=== PATIENT | male | born 1960 | race Caucasian/White ===

== ENCOUNTER 2016-10-13 12:00 | Inpatient (IN) | payer MEDICARE, OTHER ==
[~2016-10-13] VITALS: Ht 177.8 cm; Wt 88.3 kg
[~2016-10-13 12:00] MED LIST: ATOR40TA49 PO; BUPR100CR PO; CHLO.12%30 SSP; FENO134C PO; GLIP10 PO; GLUCTAB PO; IBUP-232 PO; LANS30 PO; LITH150C7 PO; METO50 PO; PENI500T PO; PLAV75TA PO; TAB-TAB PO
[2016-10-13 13:20] LABS: BASOPHIL % 0.3 % (0.0-2.0); EOSINOPHIL # 0.1 TH/MM3 (0-0.4); EOSINOPHIL % 1.3 % (0.0-4.0); HEMO FLAGS DIFF FINAL; LYMPHOCYTE # 1.3 TH/MM3 (1.0-4.8); MEAN CELL VOLUME 84.7 FL (80.0-100.0); MEAN CORPUSCULAR HEMOGLOBIN 27.6 PG (27.0-34.0); MEAN CORPUSCULAR HGB CONC 32.6 % (32.0-36.0); NEUT % 81.4 % (16.0-70.0); PLATELET COUNT 262 TH/MM3 (150-450); RED BLOOD COUNT 4.72 MIL/MM3 (4.50-5.90); RED CELL DISTRIBUTION WIDTH 14.5 % (11.6-17.2); WHITE BLOOD COUNT 9.9 TH/MM3 (4.0-11.0)
[2016-10-13 13:34] LABS: ANION GAP 9 MEQ/L (5-15); AST (GOT) 67 U/L (15-37); BICARBONATE 22.5 MEQ/L (21.0-32.0); BLOOD UREA NITROGEN 17 MG/DL (7-18); CHLORIDE 106 MEQ/L (98-107); GLOMERULAR FILTRATION RATE 53 ML/MIN (>89); POTASSIUM 3.9 MEQ/L (3.5-5.1); SODIUM (NA) 137 MEQ/L (136-145)
[2016-10-13 13:39] LABS: ALKALINE PHOSPHATASE 59 U/L (45-117); ALT (GPT) 69 U/L (12-78); TOTAL BILIRUBIN ADULT 0.5 MG/DL (0.2-1.0)
--- NOTE | 2016-10-13 14:10 | PD ---
HPI Chief Complaint: Psychiatric Symptoms Time Seen by Provider: 13:45 Travel History International Travel<30 days: No Contact w/Intl Traveler<30days: No Traveled to known affect area: No History of Present Illness HPI Patient is a 56-year-old male presenting to emergency voluntarily, he was noticed at his apartment complex to be going through the trash. The police were called and brought patient to the emergency department for evaluation. Patient admits to not taking his medications as directed/consistently. He states it is too busy at times to eat, he has not eaten yet today. He reports living alone and to hearing voices. Patient states that people talked him telepathically, this confuses him. He states the voices influence what he does , telling him what to do. Patient then reported that his medications are contaminated and is requesting new ones. He has no physical complaints at this time. PFSH Past Medical History Arthritis: No Asthma: No Bipolar Disorder: Yes Anxiety: No Depression: Yes Heart Rhythm Problems: No Cardiovascular Problems: Yes High Cholesterol: No Chest Pain: Yes Congestive Heart Failure: No COPD: Yes Diabetes: Yes Diminished Hearing: No Genitourinary: No Hypertension: Yes Immune Disorder: No Musculoskeletal: Yes Neurologic: No Psychiatric: Yes (BIPOLAR DISORDER) Reproductive: No Respiratory: Yes Sleep Apnea: No Thyroid Disease: No Past Surgical History Abdominal Surgery: No Cardiac Surgery: No Ear Surgery: No Endocrine Surgery: No Eye Surgery: Yes (CATARACT SURGERY BILATERAL) Genitourinary Surgery: No Gynecologic Surgery: No Oral Surgery: No Thoracic Surgery: No Social History Alcohol Use: Yes (occ) Tobacco Use: No Substance Use: No Allergies-Medications (Allergen,Severity, Reaction): Coded Allergies: No Known Allergies (Verified , 10/13/16) Reported Meds & Prescriptions Reported Meds & Active Scripts Active Reported Wellbutrin SR 12 HR (Bupropion HCl) 150 Mg Tab 150 Mg PO DAILY Metoprolol Tartrate 50 Mg Tab 50 Mg PO BID Metformin ER (Metformin HCl) 1,000 Mg Marva 1,000 Mg PO BID With evening meal Colace (Docusate Sodium) 100 Mg Cap 300 Mg PO HS Glipizide 10 Mg Tab 10 Mg PO BIDAC Take 30 minutes before a meal Fenofibrate Micronized 134 Mg Cap 134 Mg PO DAILY Plavix (Clopidogrel Bisulfate) 75 Mg Tab 75 Mg PO DAILY [place] Carbonate 600 Mg Cap 600 Mg PO BID Lisinopril 5 Mg Tab 5 Mg PO DAILY Tamsulosin (Tamsulosin HCl) 0.4 Mg Cap 0.4 Mg PO DAILY@1400 Review of Systems Except as stated in HPI: all other systems reviewed are Neg Psychiatric: Positive: Disorder of Thought, Mood Disorder Physical Exam Narrative GENERAL: Obese, well-developed, slightly disheveled male. Skin comfortably in no acute distress. SKIN: Focused skin assessment warm/dry. Chronic changes to bilateral lower extremities, abrasion noted to left lower leg HEAD: Atraumatic. Normocephalic. EYES: Pupils equal and round. No scleral icterus. No injection or drainage. ENT: No nasal bleeding or discharge. Mucous membranes pink and moist. NECK: Trachea midline. No JVD. CARDIOVASCULAR: Regular rate and rhythm. No murmur appreciated. RESPIRATORY: No accessory muscle use. Clear to auscultation. Breath sounds equal bilaterally. GASTROINTESTINAL: Abdomen soft, non-tender, nondistended. Hepatic and splenic margins not palpable. MUSCULOSKELETAL: No obvious deformities. No clubbing. No cyanosis. Mild edema to bilateral lower extremities. NEUROLOGICAL: Awake and alert. No obvious cranial nerve deficits. Motor grossly within normal limits. Normal speech. PSYCHIATRIC: Appropriate mood and affect; insight and judgment impaired. Data Data Last Documented VS Vital Signs Date Time Temp Pulse Resp B/P Pulse Ox O2 Delivery O2 Flow Rate FiO2 10/13/16 16:00 98.1 78 17 120/76 99 Room Air Orders Complete Blood Count With Diff (10/13/16 12:39) Comprehensive Metabolic Panel (10/13/16 12:39) Psych Screen (10/13/16 12:39) Urinalysis - C+S If Indicated (10/13/16 13:41) Drug Screen, Random Urine (10/13/16 13:41) Alcohol (Ethanol) (10/13/16 13:41) Salicylates (Aspirin) (10/13/16 13:41) Tylenol (Acetaminophen) (10/13/16 13:41) Diet Regular Basic (10/13/16 Lunch) [place] (Li) (10/13/16 14:09) Labs Laboratory Tests Test 10/13/16 10/13/16 10/13/16 13:03 14:00 16:00 White Blood Count 9.9 TH/MM3 Red Blood Count 4.72 MIL/MM3 Hemoglobin 13.0 GM/DL Hematocrit 40.0 % Mean Corpuscular Volume 84.7 FL Mean Corpuscular Hemoglobin 27.6 PG Mean Corpuscular Hemoglobin 32.6 % Concent Red Cell Distribution Width 14.5 % Platelet Count 262 TH/MM3 Mean Platelet Volume 8.1 FL Neutrophils (%) (Auto) 81.4 % Lymphocytes (%) (Auto) 13.0 % Monocytes (%) (Auto) 4.0 % Eosinophils (%) (Auto) 1.3 % Basophils (%) (Auto) 0.3 % Neutrophils # (Auto) 8.0 TH/MM3 Lymphocytes # (Auto) 1.3 TH/MM3 Monocytes # (Auto) 0.4 TH/MM3 Eosinophils # (Auto) 0.1 TH/MM3 Basophils # (Auto) 0.0 TH/MM3 CBC Comment DIFF FINAL Differential Comment Sodium Level 137 MEQ/L Potassium Level 3.9 MEQ/L Chloride Level 106 MEQ/L Carbon Dioxide Level 22.5 MEQ/L Anion Gap 9 MEQ/L Blood Urea Nitrogen 17 MG/DL Creatinine 1.40 MG/DL Estimat Glomerular Filtration 53 ML/MIN Rate Random Glucose 150 MG/DL Calcium Level 9.9 MG/DL Total Bilirubin 0.5 MG/DL Aspartate Amino Transf 67 U/L (AST/SGOT) Alanine Aminotransferase 69 U/L (ALT/SGPT) Alkaline Phosphatase 59 U/L Total Protein 7.5 GM/DL Albumin 3.8 GM/DL Salicylates Level LESS THAN 1.7 MG/DL Acetaminophen Level LESS THAN 2.0 MCG/ML [place] Level 1.1 MEQ/L Ethyl Alcohol Level LESS THAN 3 MG/DL Urine Color LIGHT-YELLOW Urine Turbidity CLEAR Urine pH 6.0 Urine Specific [place] 1.003 Urine Protein TRACE mg/dL Urine Glucose (UA) NEG mg/dL Urine Ketones NEG mg/dL Urine Occult Blood TRACE Urine Nitrite NEG Urine Bilirubin NEG Urine Urobilinogen LESS THAN 2.0 MG/DL Urine Leukocyte Esterase NEG Urine WBC LESS THAN 1 /hpf Microscopic Urinalysis Comment CULT NOT INDICATED MDM Medical Decision Making Medical Screen Exam Complete: Yes Emergency Medical Condition: Yes Interpretation(s) Vital Signs Date Time Temp Pulse Resp 115/57 95 Room Air 10/13/16 14:16 17 Differential Diagnosis Mood disorder versus substance abuse versus medication noncompliance versus schizoaffective disorder versus Narrative Course Patient is a 56-year-old male brought in by the police for evaluation due to being found peeking through the garbage at his apartment complex. Patient endorses auditory hallucinations, he states he has not been compliant with his medications because he's been too busy. He is also been too busy to eat. He denies any physical complaints, he has been cooperative. He does report that the hallucinations control him. Labs reviewed and are unremarkable. Urine drug screen is pending however patient is medically clear for psychiatric evaluation at this time. Diagnosis Primary Impression: Medical clearance for psychiatric admission Condition: Stable Samira Fuentes [facility] Oct 13, 2016 14:10
[2016-10-13 14:16] VITALS: BP 115/57; PULSE 67; RESP 16; TEMP 97.7; O2SAT 95
[2016-10-13 14:27] LABS: ACETAMINOPHEN LESS THAN 2.0 MCG/ML (10.0-30.0)
[2016-10-13] MEDS ORDERED: LITH600C PO (14:59)
[2016-10-13] MEDS ORDERED: LISI-519 PO (14:59)
[2016-10-13] MEDS ORDERED: PLAV75TA29 PO (14:59)
[2016-10-13] MEDS ORDERED: FENO134C PO (14:59)
[2016-10-13] MEDS ORDERED: TAMS0.4C4 PO (14:59)
[2016-10-13] MEDS ORDERED: COLA100C3 PO (15:02)
[2016-10-13] MEDS ORDERED: GLIP10TA6 PO (15:02)
[2016-10-13] MEDS ORDERED: METF-382 PO (15:02)
[2016-10-13] MEDS ORDERED: METO50TA PO (15:03)
[2016-10-13] MEDS ORDERED: BUPR150CR PO (15:06)
[2016-10-13 16:00] VITALS: BP 120/76; PULSE 78; RESP 17; TEMP 98.1; O2SAT 99
[2016-10-13 16:20] LABS: BLOOD, URINE TRACE (NEG); GLUCOSE,URINE NEG (NEG); KETONE, URINE NEG (NEG); NITRITE,URINE NEG (NEG); URINE COLOR LIGHT-YELLOW (YELLW/STRAW)
[2016-10-13 16:22] LABS: COMMENT (UR) CULT NOT INDICATED; CULTURE IF INDICATED CULT NOT INDICATED
[2016-10-13 17:44] LABS: AMPHETAMINE, URINE NEG (NEG); BARBITURATES, URINE NEG (NEG); COCAINE, URINE NEG (NEG)
[2016-10-13] MEDS ORDERED: ALUMINUM/MAGNESIUM/SIMETH 30 ML CUP PO PRN (18:00)
[2016-10-13] MEDS ORDERED: ACETAMINOPHEN 325 MG TAB PO PRN (18:00)
[2016-10-13 20:20] VITALS: BP 116/57; PULSE 72; RESP 18; TEMP 98.6; O2SAT 96
[2016-10-13] MEDS: METOPROLOL TARTRATE 50 MG TAB PO SCH (21:00)
[2016-10-13] MEDS: metFORMIN HCL 500 MG TAB PO SCH (21:29)
[2016-10-13] MEDS: LITHIUM CARBONATE 300 MG CAP PO SCH (21:29)
[2016-10-14 05:23] VITALS: BP 121/74; PULSE 72; RESP 18; TEMP 97.6; O2SAT 97
[2016-10-14] MEDS: glipiZIDE 10 MG TAB PO SCH ×2 (06:35→15:45)
[2016-10-14] MEDS: NICOTINE 21 MG/24 HR PATCH T-DERMAL SCH (08:31)
[2016-10-14] MEDS: LITHIUM CARBONATE 300 MG CAP PO SCH ×2 (08:31→21:33)
[2016-10-14] MEDS: METOPROLOL TARTRATE 50 MG TAB PO SCH ×2 (08:31→21:33)
[2016-10-14] MEDS: FENOFIBRATE 145 MG TAB PO SCH (08:31)
[2016-10-14] MEDS: LISINOPRIL 5 MG TAB PO SCH (08:31)
[2016-10-14] MEDS: CLOPIDOGREL 75 MG TAB PO SCH (08:31)
[2016-10-14] MEDS: metFORMIN HCL 500 MG TAB PO SCH ×2 (08:31→21:32)
[2016-10-14 08:59] LABS: ANION GAP 8 MEQ/L (5-15); BICARBONATE 25.6 MEQ/L (21.0-32.0); BLOOD UREA NITROGEN 14 MG/DL (7-18); CHLORIDE 106 MEQ/L (98-107); GLOMERULAR FILTRATION RATE 60 ML/MIN (>89); LDL CHOLESTEROL 83 MG/DL (0-99); POTASSIUM 3.9 MEQ/L (3.5-5.1); SODIUM (NA) 140 MEQ/L (136-145)
[2016-10-14] MEDS ORDERED: PNEUMOCOCCAL POLYVALENT INJ 25 MCG/0.5 ML SYR IM ONE (09:00)
[2016-10-14] MEDS ORDERED: DEXTROSE 50% IN WATER 50 ML VIAL(D50) IV PUSH PRN (12:00)
[2016-10-14] MEDS ORDERED: GLUCAGON 1 MG/ML VIAL OTHER PRN (12:00)
[2016-10-14] MEDS: TAMSULOSIN HCL 0.4 MG CAP PO SCH (14:00)
--- NOTE | 2016-10-14 14:21 | PD.CONS ---
HPI Service [facility] Consult Requested By Psychiatry team Reason for Consult Medical management HTN, DM Primary Care Physician Dylan (Ismael) MD Samson Diagnoses: History of Present Illness Patient is a 56-year-old male with primary medical history of COPD, HTN, DM who came into the hospital brought in by police for psychiatric evaluation. As per report, patient was noted in his apartment complex to be going through the trash. He admits to not taking his medication as directed or being consistent about taking his medication. Also reported to be living alone and hearing voices and that people are talking to him telepathically which is confusing him. He is now admitted to inpatient psychiatry for further evaluation. Consulted for medical management. Patient seen and examined today. Reports he is doing well. Verifies his past medical history including hypertension, diabetes. Denies pain and discomfort. Denies SOB/ dyspnea. Denies chest pain, palpitations, headaches, dizziness. Denies fevers, chills, n/v/d. Denies dysuria, hematuria, urgency, frequency. Review of Systems Except as stated in HPI: all other systems reviewed are Neg Past Family Social History Allergies: Coded Allergies: No Known Allergies (Verified , 10/13/16) Past Medical History COPD Hypertension Bipolar disorder DM 2 MN in 2015 Varicose veins Prostate problems Past Surgical History Stent placements, cardiac catheter - previously being followed by Dr. Browne Cataract surgery Reported Medications Reported Meds & Active Scripts Active Reported Wellbutrin SR 12 HR (Bupropion HCl) 150 Mg Tab 150 Mg PO DAILY Metoprolol Tartrate 50 Mg Tab 50 Mg PO BID Metformin ER (Metformin HCl) 1,000 Mg Marva 1,000 Mg PO BID With evening meal Colace (Docusate Sodium) 100 Mg Cap 300 Mg PO HS Glipizide 10 Mg Tab 10 Mg PO BIDAC Take 30 minutes before a meal Fenofibrate Micronized 134 Mg Cap 134 Mg PO DAILY Plavix (Clopidogrel Bisulfate) 75 Mg Tab 75 Mg PO DAILY Rote Carbonate 600 Mg Cap 600 Mg PO BID Lisinopril 5 Mg Tab 5 Mg PO DAILY Tamsulosin (Tamsulosin HCl) 0.4 Mg Cap 0.4 Mg PO DAILY@1400 Active Ordered Medications Current Medications Medications (Trade) Dose Ordered Sig/Tayla Route Start Time Stop Time Status Last Admin (Tylenol) 650 mg Q4H PRN PO 10/13/16 18:00 (Milk Of Magnesia Liq) 30 ml DAILY PRN PO 10/13/16 18:00 (Mag-Al Plus Susp Liq) 30 ml Q6H PRN PO 10/13/16 18:00 (Habitrol 21 Mg Patch.24 Hr) 1 patch DAILY T-DERMAL 10/14/16 09:00 (Plavix) 75 mg DAILY PO 10/14/16 09:00 10/14/16 08:31 (Glucotrol) 10 mg BIDAC PO 10/14/16 07:00 10/14/16 06:35 (Prinivil) 5 mg DAILY PO 10/14/16 09:00 10/14/16 08:31 (Rote Carbonate) 600 mg BID PO 10/13/16 21:00 10/14/16 08:31 (Lopressor) 50 mg BID PO 10/13/16 21:00 10/14/16 08:31 (Flomax) 0.4 mg DAILY@1400 PO 10/14/16 14:00 10/14/16 14:00 (Tricor) 145 mg DAILY PO 10/14/16 09:00 10/14/16 08:31 (Glucophage) 1,000 mg BID PO 10/13/16 21:00 10/14/16 08:31 (D50w (Vial) Inj) 25 ml UNSCH PRN IV PUSH 10/14/16 12:00 (Glucagon Inj) 1 mg UNSCH PRN OTHER 10/14/16 12:00 (risperDAL M-TAB) 0.5 mg Q12HR PO 10/14/16 21:00 Family History Father had MN still alive Social History Occasional alcohol use Denies tobacco use, former smoker 3 years of smoking half a pack per day Denies illicit drug use Physical Exam Vital Signs Vital Signs Date Time Temp Pulse Resp B/P Pulse Ox O2 Delivery O2 Flow Rate FiO2 10/14/16 05:23 97.6 72 18 121/74 97 10/13/16 20:20 98.6 72 18 116/57 96 10/13/16 16:00 98.1 78 17 120/76 99 Room Air 10/13/16 14:16 97.7 67 16 115/57 95 Room Air 10/13/16 14:16 17 Physical Exam GENERAL: This is a well-nourished, well-developed patient, in no apparent distress. SKIN: No rashes, ecchymoses or lesions. Cool and dry. HEAD: Atraumatic. Normocephalic. No temporal or scalp tenderness. EYES: Pupils equal round and reactive. No scleral icterus. No injection or drainage. ENT: Nose without bleeding. Throat without erythema. Uvula midline. Airway patent. NECK: Trachea midline. No JVD or lymphadenopathy. CARDIOVASCULAR: Regular rate and rhythm without murmurs, gallops, or rubs. RESPIRATORY: Clear to auscultation. Breath sounds equal bilaterally. No wheezes , rales, or rhonchi. GASTROINTESTINAL: Abdomen soft, non-tender, nondistended. Bowel sounds active. MUSCULOSKELETAL: Extremities without clubbing, cyanosis, or edema. NEUROLOGICAL: Awake and alert. Oriented to situation, person, place. Motor and sensory grossly within normal limits. Normal speech. Laboratory Laboratory Tests Test 10/13/16 10/14/16 16:00 07:29 Urine Color LIGHT-YELLOW Urine Turbidity CLEAR Urine pH 6.0 Urine Specific [place] 1.003 Urine Protein TRACE Urine Glucose (UA) NEG Urine Ketones NEG Urine Occult Blood TRACE Urine Nitrite NEG Urine Bilirubin NEG Urine Urobilinogen LESS THAN 2.0 Urine Leukocyte Esterase NEG Urine WBC LESS THAN 1 Microscopic Urinalysis Comment CULT NOT INDICATED Urine Opiates Screen NEG Urine Barbiturates Screen NEG Urine Amphetamines Screen NEG Urine Benzodiazepines Screen NEG Urine Cocaine Screen NEG Urine Cannabinoids Screen NEG Sodium Level 140 Potassium Level 3.9 Chloride Level 106 Carbon Dioxide Level 25.6 Anion Gap 8 Blood Urea Nitrogen 14 Creatinine 1.25 Estimat Glomerular Filtration 60 Rate Random Glucose 116 Calcium Level 9.7 Triglycerides Level 104 Cholesterol Level 144 LDL Cholesterol 83 HDL Cholesterol 40.0 Cholesterol/HDL Ratio 3.60 Result Diagram: 10/13/16 1303 10/14/16 0729 Assessment and Plan Problem List: (1) DM type 2 (diabetes mellitus, type 2) ICD Code: E11.9 Status: Chronic (2) HTN (hypertension) ICD Code: I10 Status: Chronic Assessment and Plan Patient is a 56-year-old male with primary medical history of COPD, HTN, DM who came into the hospital brought in by police for psychiatric evaluation. As per report, patient was noted in his apartment complex to be going through the trash. He admits to not taking his medication as directed or being consistent about taking his medication. Also reported to be living alone and hearing voices and that people are talking to him telepathically which is confusing him. He is now admitted to inpatient psychiatry for further evaluation. Consulted for medical management. Hallucinations, schizoaffective disorder - managed by psychiatry team HTN - Restart home meds lisinopril 5 mg daily, metoprolol 50 mg twice a day - Monitor BP trend DM 2 - Restart home medications metformin 1000 mg twice a day, glipizide 10 mg twice a day - Check hemoglobin A1c - Insulin sliding scale, monitor for hypoglycemia BPH - Continue tamsulosin Thank you for this consultation. We will follow patient with you. Written by Jeanie Singh, acting as scribe for Dr. Walters on 10/14/16 at 14: 20. This note was transcribed by scribe [Jeanie Singh]. I, Dr. Reji Gr personally performed the history, physical exam, and medical decision making; and confirmed the accuracy of the information in the transcribed note. Authenticated by Dr. Reji Gr on 10/14/16 at 15:10. Code Status Full code Discussed Condition With Patient, nursing Jeanie Boykin Oct 14, 2016 14:21 Reji Gr MD Oct 14, 2016 15:10
[2016-10-14 14:59] LABS: HEMOGLOBIN A1a 1.3 %; HEMOGLOBIN A1b 2.1 %; HEMOGLOBIN Ao 79.8 %; HEMOGLOBIN LA1C 1.9 %; HEMOGLOBIN P3 3.7 %
--- NOTE | 2016-10-14 15:11 | MH ---
cc: MICHAEL LARSON M.D. DATE OF ADMISSION: 10/13/2016 PRESENTING CHIEF COMPLAINT AND HISTORY OF PRESENT ILLNESS This 56-year-old white male was brought to the emergency room voluntarily because of increasing depression, auditory hallucinations and bizarre behavior. In the emergency room he was evaluated by the psychiatric nurse practitioner and the case was discussed with me. It was reported that he has been increasingly become delusional believing that his medications were contaminated. In addition, he has been removing food from his home and placing it in front of his apartment complex. He also indicated that he has not been taking his medications regularly. Mr. Mcduffie is well-known to me as he has been under my care since 2011. He carries a diagnosis of bipolar affective disorder. Recently he has not been very regular with his appointments. His most recently lithium level on 09/27/2016 was 1.0, but prior to this on 06/02/2016 was 0.5. He had acknowledged missing a few doses of his medications. Prior to evaluation the case was discussed with the nursing staff on the unit who indicated that since admission he has been calm and cooperative though quite "paranoid." He also acknowledged hearing "voices." At the time of this evaluation Mr. Mcduffie was somewhat guarded. When asked about the understanding of the reason for this hospitalization he responded "I've not been taking my medicines. A few days I won't take and some days I will take only one or two pills of lithium. I started hearing voices telling me to leave the food outside the apartment of my neighbor. The assistant inventory manager saw me and said you don't look good so she called the police and they brought me here." When asked to describe the "voices" he responded "These are my brother's, my catering server. They don't say bad things." He went on to say that he believed that he could communicate with people through "telepathy." He stated that over the past four days he had not slept at all because "I don't need to." He also indicated that his mind was "racing" and that he was "manicky." He denied entertaining any suicidal thoughts or any previous suicide attempts. He did acknowledge that lately he has been drinking more than usual "I used to drink only one beer a week but now I drink maybe two or three a day." His last drink was three days ago. He denied using or abusing any illicit substances. PAST PSYCHIATRIC HISTORY He has a long history of bipolar affective disorder and has been followed at [facility] at one time. He has been under my care since 2011. Since then he has not required any further hospitalization. PAST MEDICAL HISTORY 1. Questionable history of COPD. 2. Diabetes. 3. Hypertension. 4. Bilateral cataract extraction. ALLERGIES He denied any drug allergies. MEDICATIONS His current medications are: 1. Wellbutrin 150 mg daily. 2. Metoprolol 50 mg b.i.d. 3. Metformin 1000 mg b.i.d. 4. Colace 100 mg q.h.s. 5. Glipizide 10 mg b.i.d. a.c. 6. Fenofibrate 134 mg p.o. daily. 7. Plavix 75 mg daily. 8. [place]vo carbonate 600 mg p.o. q.a.m. and q.h.s. 9. Lisinopril 5 mg p.o. daily. 10. Tamsulosin 0.4 mg p.o. daily. FAMILY/PERSONAL HISTORY Family and personal history is well-documented in my office records. He has a strong family history of bipolar affective disorder. He denied any history of alcohol or drug abuse; however, as mentioned he has been drinking more than his usual amount of alcohol lately. CLINICAL OBSERVATION AND MENTAL STATUS EXAMINATION At the time of this evaluation Mr. Mcduffie presented as a casually dressed, reasonably well-groomed, somewhat overweight white male who looked his stated age. He looked somewhat guarded and apprehensive initially but as the session progressed he became more at ease with himself. He apologized for not complying with his medications resulting in the current hospitalization. His responses to questions were relevant. No overt anger or hostility was noticed. No bizarre behavioral or mannerisms were noticed. His speech was coherent and appropriate. It was not rapid or pressured. His affect was appropriate, pleasant. Subjectively he described his mood as "I've been feeling good Dr. Larson." Thought process revealed some circumstantiality. No looseness of association or flight of ideas. As mentioned he is preoccupied with delusions, persecutory and grandeur in nature, for example, he believed that he could communicate with people through telepathy, believed that his medicines were contaminated and as such has not been taking them. He also acknowledged experiencing auditory hallucinations, mainly of his brother telling him to remove the food from his house and leave it at his neighbor's door, etc. No visual hallucinations are noticed or reported. He denied active suicidal or homicidal ideations or intent at this time. He denied any previous suicide attempts. Cognitive functions: He was alert, oriented to time, place, person and situation. Memory, immediate he could do 5 digits forward, 4 digits backward. Recently, he could recall 2/3 objects after 10 minutes. Remote, he could recall Presidents up to President Obama only. His attention and concentration was impaired. He could do serial 7's up to 86. His judgment and insight was felt to be fair. REVIEW OF SYSTEMS He denied any diarrhea, vomiting or abdominal pain. He denied dysuria, hematuria or frequency. He denied any chest pain, palpitations, dyspnea on exertion. He denied muscle weakness, numbness or any history of seizures. PHYSICAL EXAMINATION The physical examination was not done as this has already been done in the ER. No acute medical issues identified. No gross neurological deficits noticed at this time. DIAGNOSTIC IMPRESSION [place] I: Bipolar affective disorder, manic phase. [place] II: No diagnosis. [place] III: Diabetes mellitus, hypertension, status post stripping of varicose veins, status post bilateral cataract extraction, hyperlipidemia, questionable COPD. [place] IV: Severity of psychosocial stressors moderate, i.e., chronic psychiatric illness, chronic medical illness, limited financial resources. [place] V: Current GAF score 30. FORMULATION AND TREATMENT PLAN Based on this evaluation and my knowledge of his case, Mr. Mcduffie is experiencing a manic phase of bipolar affective disorder. His current decompensation is due to noncompliance with medications. Considering his manic state he will be taken off of the Wellbutrin. He will be maintained on lithium. To control his psychotic symptoms he will be started on Risperdal. The treatment approach was discussed at length with him and he was very much supportive. Simultaneously he will be involved in individual psychotherapy primarily focusing on above identified issues. Compliance with medications will be emphasized. He will participate in various other unit activities, i.e., occupational therapy, recreational therapy, group therapy. Medical consult will be requested for assistance in the management of his medical problems. District Superintendent will be asked to assist in discharge planning. His identified problems are: 1. Psychosis/mickey. 2. Noncompliance. 3. Current psychosocial stressors. His assets are: 1. He is verbal. 2. Motivated to seek help. His estimated length of stay is 7 days. MD GAIL Rowell/JOSE ANTONIO /2:22 PM /2:51 PM
[2016-10-14] MEDS: INSULIN ASPART SUPPLEMENTAL SCALE SQ SCH ×2 (15:23→21:00)
[2016-10-14 18:43] VITALS: BP 142/62; PULSE 65; RESP 18; TEMP 98.6; O2SAT 96
[2016-10-14 19:00] VITALS: BP 142/61; PULSE 65; RESP 18; TEMP 98.6; O2SAT 96
[2016-10-14] MEDS: MAGNESIUM HYDROXIDE SUSP 30 ML CUP PO PRN (21:32)
[2016-10-15 04:45] VITALS: BP 139/76; PULSE 78; RESP 18; TEMP 98; O2SAT 96
[2016-10-15] MEDS: glipiZIDE 10 MG TAB PO SCH ×2 (06:53→15:35)
[2016-10-15] MEDS: INSULIN ASPART SUPPLEMENTAL SCALE SQ SCH ×4 (06:53→21:00)
[2016-10-15] MEDS: metFORMIN HCL 500 MG TAB PO SCH ×2 (08:54→21:44)
[2016-10-15] MEDS: FENOFIBRATE 145 MG TAB PO SCH (08:54)
[2016-10-15] MEDS: LISINOPRIL 5 MG TAB PO SCH (08:54)
[2016-10-15] MEDS: METOPROLOL TARTRATE 50 MG TAB PO SCH ×2 (08:54→21:44)
[2016-10-15] MEDS: CLOPIDOGREL 75 MG TAB PO SCH (08:54)
[2016-10-15] MEDS: LITHIUM CARBONATE 300 MG CAP PO SCH ×2 (08:55→21:44)
[2016-10-15] MEDS: NICOTINE 21 MG/24 HR PATCH T-DERMAL SCH (08:57)
[2016-10-15 12:45] LABS: FREE T4 1.13 NG/DL (0.76-1.46)
--- NOTE | 2016-10-15 13:34 | HHI.PR ---
Subjective Remarks Follow up visit DM, HTN. Pt. seen and examined today. Reports he is doing well. Denies any pain/ discomfort. Denies abdominal pain, cramping, dizziness , n/v/d. Objective Vitals Vital Signs Date Time Temp Pulse Resp B/P Pulse Ox O2 Delivery O2 Flow Rate FiO2 10/15/16 04:45 98.0 78 18 139/76 96 10/14/16 19:00 98.6 65 18 142/61 96 10/14/16 18:43 98.6 65 18 142/62 96 I/O 10/14/16 10/14/16 10/14/16 10/15/16 10/15/16 10/15/16 07:00 15:00 23:00 07:00 15:00 23:00 Intake Total 840 ml Balance 840 ml Intake Oral 840 ml Result Diagram: 10/13/16 1303 10/14/16 0729 Objective Remarks GENERAL: This is a well-nourished, well-developed patient, in no apparent distress. SKIN: Warm and dry. HEAD: Atraumatic. Normocephalic. EYES: Pupils equal round and reactive. No scleral icterus. No injection or drainage. ENT: Nose without bleeding. Throat without erythema. Uvula midline. Airway patent. NECK: Trachea midline. No JVD or lymphadenopathy. CARDIOVASCULAR: Regular rate and rhythm without murmurs, gallops, or rubs. RESPIRATORY: Clear to auscultation. Breath sounds equal bilaterally. No wheezes , rales, or rhonchi. GASTROINTESTINAL: Abdomen soft, non-tender, nondistended. Bowel sounds active. MUSCULOSKELETAL: Extremities without clubbing, cyanosis, BLE trace edema. LLE stasis discoloration. NEUROLOGICAL: Awake and alert. Oriented to situation, person, place. Motor and sensory grossly within normal limits. Normal speech A/P Problem List: (1) DM type 2 (diabetes mellitus, type 2) ICD Code: E11.9 Status: Chronic (2) HTN (hypertension) ICD Code: I10 Status: Chronic Assessment and Plan Patient is a 56-year-old male with primary medical history of COPD, HTN, DM who came into the hospital brought in by police for psychiatric evaluation. As per report, patient was noted in his apartment complex to be going through the trash. He admits to not taking his medication as directed or being consistent about taking his medication. Also reported to be living alone and hearing voices and that people are talking to him telepathically which is confusing him. He is now admitted to inpatient psychiatry for further evaluation. Consulted for medical management. Hallucinations, schizoaffective disorder - managed by psychiatry team HTN - Restart home meds lisinopril 5 mg daily, metoprolol 50 mg twice a day - Monitor BP trend DM 2 - Restart home medications metformin 1000 mg twice a day, glipizide 10 mg twice a day - Hemoglobin A1c 11.1 - Insulin sliding scale, monitor for hypoglycemia - BG levels on accucheck without insulin coverage <150, pt. reports he did not take his metformin and glipizide because he is unable to refill it - Discussed with patient importance of compliance. BPH - Continue tamsulosin DVT prop ambulatory Stable from hospitalist standpoint. Reconsult as needed. Written by Jeanie Singh, acting as scribe for Dr. Gr on 10/15/16 at 13: 32. This note was transcribed by scribe [Jeanie Singh]. I, Dr. Reji Gr personally performed the history, physical exam, and medical decision making; and confirmed the accuracy of the information in the transcribed note. Authenticated by Dr. Reji Gr on 10/15/16 at 14:31. Jeanie Boykin Oct 15, 2016 13:34 Reji Gr MD Oct 15, 2016 14:32
[2016-10-15] MEDS ORDERED: PLAV75TA29 PO (13:37)
[2016-10-15] MEDS ORDERED: LISI-519 PO (13:37)
[2016-10-15] MEDS ORDERED: GLIP10TA6 PO (13:37)
[2016-10-15] MEDS ORDERED: TAMS0.4C4 PO (13:37)
[2016-10-15] MEDS ORDERED: METF-382 PO (13:37)
[2016-10-15] MEDS: TAMSULOSIN HCL 0.4 MG CAP PO SCH (15:35)
[2016-10-15 18:00] VITALS: BP 155/83; PULSE 66; RESP 16; TEMP 97.6; O2SAT 100
[2016-10-16 06:15] VITALS: BP 108/59; PULSE 60; RESP 18; TEMP 98; O2SAT 98
[2016-10-16] MEDS: INSULIN ASPART SUPPLEMENTAL SCALE SQ SCH ×4 (06:17→21:00)
[2016-10-16] MEDS: glipiZIDE 10 MG TAB PO SCH ×2 (06:31→16:00)
[2016-10-16] MEDS: LISINOPRIL 5 MG TAB PO SCH (08:53)
[2016-10-16] MEDS: CLOPIDOGREL 75 MG TAB PO SCH (08:53)
[2016-10-16] MEDS: METOPROLOL TARTRATE 50 MG TAB PO SCH ×2 (08:53→21:00)
[2016-10-16] MEDS: FENOFIBRATE 145 MG TAB PO SCH (08:53)
[2016-10-16] MEDS: metFORMIN HCL 500 MG TAB PO SCH ×2 (08:53→21:00)
[2016-10-16] MEDS: NICOTINE 21 MG/24 HR PATCH T-DERMAL SCH (08:57)
[2016-10-16] MEDS: LITHIUM CARBONATE 300 MG CAP PO SCH (09:00)
[2016-10-16] MEDS: TAMSULOSIN HCL 0.4 MG CAP PO SCH (13:10)
[2016-10-16 18:00] VITALS: BP 136/63; PULSE 65; RESP 18; TEMP 97.2; O2SAT 100
[2016-10-17 05:30] VITALS: BP 105/56; PULSE 62; RESP 20; TEMP 98.5; O2SAT 99
[2016-10-17] MEDS: INSULIN ASPART SUPPLEMENTAL SCALE SQ SCH ×4 (06:33→21:00)
[2016-10-17] MEDS: glipiZIDE 10 MG TAB PO SCH ×2 (06:34→16:13)
[2016-10-17] MEDS: FENOFIBRATE 145 MG TAB PO SCH (08:30)
[2016-10-17] MEDS: CLOPIDOGREL 75 MG TAB PO SCH (08:30)
[2016-10-17] MEDS: LISINOPRIL 5 MG TAB PO SCH (08:30)
[2016-10-17] MEDS: METOPROLOL TARTRATE 50 MG TAB PO SCH ×2 (08:30→21:25)
[2016-10-17] MEDS: NICOTINE 21 MG/24 HR PATCH T-DERMAL SCH (08:32)
[2016-10-17] MEDS: metFORMIN HCL 500 MG TAB PO SCH ×2 (08:32→21:00)
[2016-10-17] MEDS: TAMSULOSIN HCL 0.4 MG CAP PO SCH (13:18)
[2016-10-17 22:00] VITALS: BP 92/53; PULSE 66; RESP 20; TEMP 98.9; O2SAT 97
[2016-10-18 05:50] VITALS: BP 104/55; PULSE 60; RESP 20; TEMP 97.8; O2SAT 98
[2016-10-18] MEDS: INSULIN ASPART SUPPLEMENTAL SCALE SQ SCH ×4 (06:37→21:00)
[2016-10-18] MEDS: glipiZIDE 10 MG TAB PO SCH ×2 (07:00→16:00)
[2016-10-18 07:53] LABS: ANION GAP 3 MEQ/L (5-15); AST (GOT) 20 U/L (15-37); BICARBONATE 29.1 MEQ/L (21.0-32.0); BLOOD UREA NITROGEN 29 MG/DL (7-18); CHLORIDE 107 MEQ/L (98-107); GLOMERULAR FILTRATION RATE 51 ML/MIN (>89); POTASSIUM 4.8 MEQ/L (3.5-5.1); SODIUM (NA) 139 MEQ/L (136-145)
[2016-10-18 07:56] LABS: ALKALINE PHOSPHATASE 53 U/L (45-117); ALT (GPT) 46 U/L (12-78); TOTAL BILIRUBIN ADULT 0.4 MG/DL (0.2-1.0)
[2016-10-18] MEDS: metFORMIN HCL 500 MG TAB PO SCH ×2 (08:49→21:37)
[2016-10-18] MEDS: FENOFIBRATE 145 MG TAB PO SCH (08:49)
[2016-10-18] MEDS: METOPROLOL TARTRATE 50 MG TAB PO SCH ×2 (08:50→21:37)
[2016-10-18] MEDS: LISINOPRIL 5 MG TAB PO SCH (08:50)
[2016-10-18] MEDS: CLOPIDOGREL 75 MG TAB PO SCH (08:51)
[2016-10-18] MEDS: TAMSULOSIN HCL 0.4 MG CAP PO SCH (13:09)
[2016-10-18 16:54] VITALS: BP 114/64; PULSE 68; RESP 18; TEMP 98.4; O2SAT 99
[2016-10-19 05:51] VITALS: BP 99/47; PULSE 61; RESP 16; TEMP 96.7; O2SAT 99
[2016-10-19] MEDS: glipiZIDE 10 MG TAB PO SCH ×2 (06:27→16:10)
[2016-10-19] MEDS: INSULIN ASPART SUPPLEMENTAL SCALE SQ SCH ×4 (06:28→21:00)
[2016-10-19] MEDS: METOPROLOL TARTRATE 50 MG TAB PO SCH ×2 (09:00→22:02)
[2016-10-19] MEDS: LISINOPRIL 5 MG TAB PO SCH (09:00)
[2016-10-19 09:40] VITALS: BP 104/55; PULSE 72
[2016-10-19] MEDS: metFORMIN HCL 500 MG TAB PO SCH (09:41)
[2016-10-19] MEDS: FENOFIBRATE 145 MG TAB PO SCH (09:41)
[2016-10-19] MEDS: CLOPIDOGREL 75 MG TAB PO SCH (09:41)
[2016-10-19] MEDS: TAMSULOSIN HCL 0.4 MG CAP PO SCH (13:08)
[2016-10-19] MEDS ORDERED: HYDROCORTISONE/PRAMOXINE RECTAL FOAM 10 GM CAN RECTAL ONE (16:30)
[2016-10-19] MEDS ORDERED: HYDROCORTISONE/PRAMOXINE RECTAL FOAM 10 GM CAN RECTAL PRN (16:30)
--- NOTE | 2016-10-19 16:43 | HHI.PR ---
Subjective Remarks Reconsult for SWETA and elevated BUN. Patient with history of hypertension and diabetes mellitus. Patient seen and examined today. Patient reports he's feeling well. Patient drinks 3-4 pitchers of water daily. States he's had a long history of blood in his stool for the past year likely due to hemorrhoids. He denies any dark or tarry stools. He has had a previous colonoscopy about 2 -3 years ago which was negative per patient report he was told to follow-up in 10 years. Patient denies any fever/chills, nausea/vomiting, cough, shortness of breath, chest pain or abdominal pain. He has a long-standing history of varicose veins in both his legs with stasis hyperpigmentation changes. Objective Vitals Vital Signs Date Time Temp Pulse Resp B/P Pulse Ox O2 Delivery O2 Flow Rate FiO2 10/19/16 09:40 72 104/55 10/19/16 05:51 96.7 61 16 99/47 99 10/18/16 16:54 98.4 68 18 114/64 99 Result Diagram: 10/18/16 0631 Objective Remarks GENERAL: This is a well-nourished, well-developed patient, in no apparent distress. Awake and alert. SKIN: Warm and dry. HEENT: Atraumatic. Normocephalic. MMM. NECK: Trachea midline. No JVD or lymphadenopathy. CARDIOVASCULAR: Regular rate and rhythm without murmurs, gallops, or rubs. RESPIRATORY: Clear to auscultation. Breath sounds equal bilaterally. No wheezes , rales, or rhonchi. GASTROINTESTINAL: Abdomen soft, non-tender, nondistended. Bowel sounds active. MUSCULOSKELETAL: Extremities without clubbing, cyanosis, BLE trace edema. LLE stasis discoloration. NEUROLOGICAL: Awake and alert. Oriented to situation, person, place. Motor and sensory grossly within normal limits. Normal speech A/P Problem List: (1) DM type 2 (diabetes mellitus, type 2) ICD Code: E11.9 Status: Chronic (2) HTN (hypertension) ICD Code: I10 Status: Chronic Assessment and Plan Patient is a 56-year-old male with primary medical history of COPD, HTN, DM who came into the hospital brought in by police for psychiatric evaluation. As per report, patient was noted in his apartment complex to be going through the trash. He admits to not taking his medication as directed or being consistent about taking his medication. Also reported to be living alone and hearing voices and that people are talking to him telepathically which is confusing him. He is now admitted to inpatient psychiatry for further evaluation. Reconsulted for elevated creatinine and BUN. Hallucinations, schizoaffective disorder - managed by psychiatry team HTN - Currently hypotensive - Hold lisinopril due to SWETA - Monitor BP trend DM 2 - patient resumed on home medications metformin 1000 mg twice a day, glipizide 10 mg twice a day - hold metformin due to SWETA - Hemoglobin A1c 11.1 - Insulin sliding scale, monitor for hypoglycemia - BG levels on accucheck without insulin coverage <150, pt. reports he did not take his metformin and glipizide because he is unable to refill it - blood sugars running 79 to 137 today SWETA - Creatinine 1.45 - hold metformin and lisinopril - Patient appears to be well-hydrated - Avoid nephrotoxic agents - A.m. labs to monitor trend Elevated BUN - BUN 29 - Patient reports a long history of blood in the stool for the past year but appears this is hemorrhoidal in origin. Negative colonoscopy 2-3 years ago ppr. - H/H normal - Stool hemoccult ordered - monitor BPH - Continue tamsulosin Constipation and hemorrhoids - chronic - Proctofoam - stool softener DVT prop ambulatory Discussed with patient, nursing staff and Carmen Gonzalez October 19, 2016 16:43
[2016-10-19 17:59] VITALS: BP 121/65; PULSE 70; RESP 18; TEMP 98; O2SAT 98
[2016-10-19] MEDS: DOCUSATE SODIUM 100 MG CAP PO SCH (22:02)
[2016-10-20 06:10] VITALS: BP 119/73; PULSE 61; RESP 18; TEMP 98.1; O2SAT 97
[2016-10-20] MEDS: INSULIN ASPART SUPPLEMENTAL SCALE SQ SCH ×4 (07:00→20:22)
[2016-10-20] MEDS: glipiZIDE 10 MG TAB PO SCH ×2 (07:00→16:30)
[2016-10-20 08:07] LABS: AUTOMATED NEUTROPHIL # 6.3 TH/MM3 (1.8-7.7); BASOPHIL % 0.3 % (0.0-2.0); EOSINOPHIL # 0.2 TH/MM3 (0-0.4); EOSINOPHIL % 2.3 % (0.0-4.0); HEMATOCRIT 39.5 % (39.0-51.0); HEMO FLAGS DIFF FINAL; LYMPH % 16.7 % (9.0-44.0); LYMPHOCYTE # 1.4 TH/MM3 (1.0-4.8); MEAN CELL VOLUME 83.4 FL (80.0-100.0); MEAN CORPUSCULAR HGB CONC 33.6 % (32.0-36.0); MONO % 4.7 % (0.0-8.0); PLATELET COUNT 243 TH/MM3 (150-450); RED BLOOD COUNT 4.73 MIL/MM3 (4.50-5.90); RED CELL DISTRIBUTION WIDTH 14.4 % (11.6-17.2); WHITE BLOOD COUNT 8.4 TH/MM3 (4.0-11.0)
[2016-10-20] MEDS: CLOPIDOGREL 75 MG TAB PO SCH (08:33)
[2016-10-20] MEDS: FENOFIBRATE 145 MG TAB PO SCH (08:33)
[2016-10-20] MEDS: METOPROLOL TARTRATE 50 MG TAB PO SCH ×2 (08:33→20:23)
[2016-10-20] MEDS: DOCUSATE SODIUM 100 MG CAP PO SCH ×2 (08:33→20:23)
[2016-10-20 08:47] LABS: BICARBONATE 25.5 MEQ/L (21.0-32.0); POTASSIUM 4.3 MEQ/L (3.5-5.1)
[2016-10-20] MEDS: TAMSULOSIN HCL 0.4 MG CAP PO SCH (14:25)
[2016-10-20 20:17] VITALS: BP 122/66; PULSE 72; RESP 17; TEMP 96.4; O2SAT 99
[2016-10-20] MEDS: risperiDONE ODT 2 MG TAB PO SCH (20:23)
[2016-10-21 06:23] VITALS: BP 118/70; PULSE 73; RESP 16; TEMP 97.7; O2SAT 100
[2016-10-21] MEDS: glipiZIDE 10 MG TAB PO SCH ×2 (06:34→17:56)
[2016-10-21] MEDS: INSULIN ASPART SUPPLEMENTAL SCALE SQ SCH ×4 (06:35→21:00)
[2016-10-21] MEDS: DOCUSATE SODIUM 100 MG CAP PO SCH ×2 (08:29→21:02)
[2016-10-21] MEDS: METOPROLOL TARTRATE 50 MG TAB PO SCH ×2 (08:29→21:02)
[2016-10-21] MEDS: risperiDONE ODT 1 MG TAB PO SCH (08:30)
[2016-10-21] MEDS: FENOFIBRATE 145 MG TAB PO SCH (08:30)
[2016-10-21] MEDS: CLOPIDOGREL 75 MG TAB PO SCH (08:30)
[2016-10-21 10:00] LABS: BICARBONATE 26.7 MEQ/L (21.0-32.0); POTASSIUM 4.1 MEQ/L (3.5-5.1)
[2016-10-21] MEDS: TAMSULOSIN HCL 0.4 MG CAP PO SCH (14:11)
[2016-10-21 18:44] VITALS: BP 137/58; PULSE 76; RESP 18; TEMP 97.8; O2SAT 96
[2016-10-21] MEDS: risperiDONE ODT 2 MG TAB PO SCH (21:02)
[2016-10-22 05:07] VITALS: BP 121/67; PULSE 64; RESP 18; TEMP 97.9; O2SAT 99
[2016-10-22] MEDS: INSULIN ASPART SUPPLEMENTAL SCALE SQ SCH ×4 (06:12→21:00)
[2016-10-22] MEDS: glipiZIDE 10 MG TAB PO SCH ×2 (06:12→16:00)
[2016-10-22] MEDS: risperiDONE ODT 1 MG TAB PO SCH (08:13)
[2016-10-22] MEDS: FENOFIBRATE 145 MG TAB PO SCH (08:13)
[2016-10-22] MEDS: CLOPIDOGREL 75 MG TAB PO SCH (08:13)
[2016-10-22] MEDS: carBAMazepine 200 MG TAB PO SCH (08:13)
[2016-10-22] MEDS: METOPROLOL TARTRATE 50 MG TAB PO SCH ×2 (08:13→22:24)
[2016-10-22] MEDS: DOCUSATE SODIUM 100 MG CAP PO SCH ×2 (08:13→22:24)
[2016-10-22 09:59] LABS: POTASSIUM 4.1 MEQ/L (3.5-5.1)
--- NOTE | 2016-10-22 13:09 | HHI.PR ---
Subjective Remarks Reconsult for SWETA and elevated BUN. Patient with history of hypertension and diabetes mellitus. Patient seen and examined today. Patient states he feels well today. He informs me he has "alot of important things to do for Derrick Morejon". He denies any acute medical complaints at this time. Denies any itching or burning pain from his hemorrhoids. Denies any fever, chills, nausea , vomiting, SOB, chest pain or abdominal pain. Objective Vitals Vital Signs Date Time Temp Pulse Resp B/P Pulse Ox O2 Delivery O2 Flow Rate FiO2 10/22/16 05:07 97.9 64 18 121/67 99 10/21/16 18:44 97.8 76 18 137/58 96 Result Diagram: 10/20/16 0648 10/22/16 0805 Objective Remarks GENERAL: This is a well-nourished, well-developed patient, in no apparent distress. Awake and alert. SKIN: Warm and dry. HEENT: Atraumatic. Normocephalic. MMM. NECK: Trachea midline. No JVD or lymphadenopathy. CARDIOVASCULAR: Regular rate and rhythm without murmurs, gallops, or rubs. RESPIRATORY: Clear to auscultation. Breath sounds equal bilaterally. No wheezes , rales, or rhonchi. GASTROINTESTINAL: Abdomen soft, non-tender, nondistended. Bowel sounds active. MUSCULOSKELETAL: Extremities without clubbing, cyanosis, BLE trace edema. LLE stasis discoloration. NEUROLOGICAL: Awake and alert. Oriented to situation, person, place. Motor and sensory grossly within normal limits. Normal speech Medications and IVs Current Medications Medications (Trade) Dose Ordered Sig/Tayla Route Start Time Stop Time Status Last Admin (Tylenol) 650 mg Q4H PRN PO 10/13/16 18:00 (Milk Of Magnesia Liq) 30 ml DAILY PRN PO 10/13/16 18:00 10/14/16 21:32 (Mag-Al Plus Susp Liq) 30 ml Q6H PRN PO 10/13/16 18:00 (Plavix) 75 mg DAILY PO 10/14/16 09:00 10/22/16 08:13 (Glucotrol) 10 mg BIDAC PO 10/14/16 07:00 10/22/16 06:12 (Prinivil) 5 mg DAILY PO 10/14/16 09:00 Hold 10/18/16 08:50 (Lopressor) 50 mg BID PO 10/13/16 21:00 10/22/16 08:13 (Flomax) 0.4 mg DAILY@1400 PO 10/14/16 14:00 10/21/16 14:11 (Tricor) 145 mg DAILY PO 10/14/16 09:00 10/22/16 08:13 (Glucophage) 1,000 mg BID PO 10/13/16 21:00 Hold 10/19/16 09:41 (D50w (Vial) Inj) 25 ml UNSCH PRN IV PUSH 10/14/16 12:00 (Glucagon Inj) 1 mg UNSCH PRN OTHER 10/14/16 12:00 (Proctofoam Hc Rectal Foam) 1 applic Q8H PRN RECTAL 10/19/16 16:30 (Colace) 100 mg BID PO 10/19/16 21:00 10/22/16 08:13 (risperDAL M-TAB) 1 mg DAILY PO 10/21/16 09:00 10/22/16 08:13 (risperDAL M-TAB) 2 mg HS PO 10/20/16 21:00 10/21/16 21:02 (TEGretol) 200 mg DAILY PO 10/22/16 09:00 10/22/16 08:13 A/P Problem List: (1) DM type 2 (diabetes mellitus, type 2) ICD Code: E11.9 Status: Chronic (2) HTN (hypertension) ICD Code: I10 Status: Chronic Assessment and Plan Patient is a 56-year-old male with primary medical history of COPD, HTN, DM who came into the hospital brought in by police for psychiatric evaluation. As per report, patient was noted in his apartment complex to be going through the trash. He admits to not taking his medication as directed or being consistent about taking his medication. Also reported to be living alone and hearing voices and that people are talking to him telepathically which is confusing him. He is now admitted to inpatient psychiatry for further evaluation. Reconsulted for elevated creatinine and BUN. Hallucinations, schizoaffective disorder - managed by psychiatry team HTN - BP 121/67 - Lisinopril on hold due to SWETA, continue Metoprolol - Monitor BP DM 2 - patient resumed on home medications metformin 1000 mg twice a day, glipizide 10 mg twice a day - Metformin held due to SWETA which is now resolved, resume and recheck BMP in 2-3 days - Hemoglobin A1c 11.1 - Insulin sliding scale, monitor for hypoglycemia - BG levels on accucheck without insulin coverage <150, pt. reports he did not take his metformin and glipizide because he is unable to refill it - blood sugars running 119 to 128 today SWETA - improving - Creatinine 1.45 -> 1.30 - continue to hold Lisinopril - Metformin resumed at lower dose - Avoid nephrotoxic agents - labs to monitor trend Elevated BUN - improving BUN 29 -> 25 - Patient reports a long history of blood in the stool for the past year but appears this is hemorrhoidal in origin. Negative colonoscopy 2-3 years ago ppr. - H/H normal - Stool hemoccult ordered/pending - encourage fluids - monitor BPH - Continue tamsulosin Constipation and hemorrhoids - chronic - Proctofoam prn - stool softener DVT prop ambulatory Discussed with patient, nursing staff and Carmen Caballero October 22, 2016 13:09
[2016-10-22] MEDS: TAMSULOSIN HCL 0.4 MG CAP PO SCH (14:08)
[2016-10-22] MEDS: metFORMIN HCL 500 MG TAB PO SCH (17:00)
[2016-10-22 17:51] VITALS: BP 144/73; PULSE 78; RESP 16; TEMP 97.2; O2SAT 98
[2016-10-22] MEDS: risperiDONE ODT 2 MG TAB PO SCH (22:24)
[2016-10-23 05:36] VITALS: BP 105/65; PULSE 65; RESP 17; TEMP 97.8; O2SAT 98
[2016-10-23] MEDS: INSULIN ASPART SUPPLEMENTAL SCALE SQ SCH ×4 (06:36→21:00)
[2016-10-23] MEDS: glipiZIDE 10 MG TAB PO SCH ×2 (06:37→16:03)
[2016-10-23] MEDS: DOCUSATE SODIUM 100 MG CAP PO SCH ×2 (09:08→21:25)
[2016-10-23] MEDS: CLOPIDOGREL 75 MG TAB PO SCH (09:08)
[2016-10-23] MEDS: METOPROLOL TARTRATE 50 MG TAB PO SCH ×2 (09:08→21:25)
[2016-10-23] MEDS: carBAMazepine 200 MG TAB PO SCH (09:08)
[2016-10-23] MEDS: metFORMIN HCL 500 MG TAB PO SCH ×2 (09:08→18:11)
[2016-10-23] MEDS: risperiDONE ODT 1 MG TAB PO SCH (09:08)
[2016-10-23] MEDS: FENOFIBRATE 145 MG TAB PO SCH (09:09)
[2016-10-23] MEDS: TAMSULOSIN HCL 0.4 MG CAP PO SCH (13:46)
--- NOTE | 2016-10-23 16:20 | HHI.PR ---
Subjective Remarks Follow-up visit acute kidney injury, elevated B UN, diabetes, hypertension. Patient seen and examined today. Reports he is doing well. Discussed with patient regarding medications especially use of metformin with elevated creatinine. Discuss hydration. Patient states that he will hydrate well. Discussed possible switching over to another oral diabetic medication or insulin. Denies pain and discomfort. Denies SOB/ dyspnea. Denies chest pain, palpitations, headaches, dizziness. Denies fevers, chills, n/v/d. Objective Vitals Vital Signs Date Time Temp Pulse Resp B/P Pulse Ox O2 Delivery O2 Flow Rate FiO2 10/23/16 05:36 97.8 65 17 105/65 98 10/22/16 17:51 97.2 78 16 144/73 98 Result Diagram: 10/20/16 0648 10/22/16 0805 Objective Remarks GENERAL: This is a well-nourished, well-developed patient, in no apparent distress. SKIN: Warm and dry. HEAD: Atraumatic. Normocephalic. EYES: Pupils equal round and reactive. No scleral icterus. No injection or drainage. ENT: Nose without bleeding. Throat without erythema. Uvula midline. Airway patent. NECK: Trachea midline. No JVD or lymphadenopathy. CARDIOVASCULAR: Regular rate and rhythm without murmurs, gallops, or rubs. RESPIRATORY: Clear to auscultation. Breath sounds equal bilaterally. No wheezes , rales, or rhonchi. GASTROINTESTINAL: Abdomen soft, non-tender, nondistended. Bowel sounds active. MUSCULOSKELETAL: Extremities without clubbing, cyanosis, BLE trace edema. LLE stasis discoloration. NEUROLOGICAL: Awake and alert. Oriented to situation, person, place. Motor and sensory grossly within normal limits. Normal speech A/P Problem List: (1) DM type 2 (diabetes mellitus, type 2) ICD Code: E11.9 Status: Chronic (2) HTN (hypertension) ICD Code: I10 Status: Chronic Assessment and Plan Patient is a 56-year-old male with primary medical history of COPD, HTN, DM who came into the hospital brought in by police for psychiatric evaluation. As per report, patient was noted in his apartment complex to be going through the trash. He admits to not taking his medication as directed or being consistent about taking his medication. Also reported to be living alone and hearing voices and that people are talking to him telepathically which is confusing him. He is now admitted to inpatient psychiatry for further evaluation. Consulted for medical management. Hallucinations, schizoaffective disorder - managed by psychiatry team HTN - Hold lisinopril 5 mg daily due to a KCI, continue metoprolol 50 mg twice a day - Monitor BP trend. Within normal. DM 2 - Decrease metformin 500 mg twice a day, glipizide 10 mg twice a day - Hemoglobin A1c 11.1 - Insulin sliding scale, monitor for hypoglycemia - BG levels on accucheck without insulin coverage <150, pt. reports he did not take his metformin and glipizide because he is unable to refill it in outpatient - Discussed with patient importance of compliance - Discussed with patient possible discontinuation of metformin if creatinine continues to be elevated secondary to risk of lactic acidosis. He may be able to benefit with Januvia or Actos in combination with his glipizide or basal insulin. However, patient is at higher risk of noncompliance with insulin use since he is not even able to take by mouth metformin and glipizide as an outpatient. Acute kidney injury - Creatinine 1.45 --> 1.31 --> 1.30 - Possibly related to dehydration, patient's BUN also elevated - Avoid nephrotoxins - Check BMP tomorrow - Encourage by mouth fluid hydration - Ultrasound renal bladder BPH - Continue tamsulosin DVT prop ambulatory Discussed with patient, nursing Jeanie Boykin October 23, 2016 16:20
[2016-10-23 20:00] VITALS: BP 128/70; PULSE 70; RESP 16; TEMP 97.3; O2SAT 98
[2016-10-23] MEDS: risperiDONE ODT 2 MG TAB PO SCH (21:25)
[2016-10-24 05:53] VITALS: BP 115/64; PULSE 65; RESP 15; TEMP 96.1; O2SAT 96
[2016-10-24] MEDS: INSULIN ASPART SUPPLEMENTAL SCALE SQ SCH ×4 (06:21→21:00)
[2016-10-24] MEDS: glipiZIDE 10 MG TAB PO SCH ×2 (06:47→16:00)
[2016-10-24] MEDS: METOPROLOL TARTRATE 50 MG TAB PO SCH ×2 (09:16→21:19)
[2016-10-24] MEDS: DOCUSATE SODIUM 100 MG CAP PO SCH ×2 (09:16→21:19)
[2016-10-24] MEDS: carBAMazepine 200 MG TAB PO SCH (09:16)
[2016-10-24] MEDS: metFORMIN HCL 500 MG TAB PO SCH ×2 (09:16→17:22)
[2016-10-24] MEDS: CLOPIDOGREL 75 MG TAB PO SCH (09:16)
[2016-10-24] MEDS: FENOFIBRATE 145 MG TAB PO SCH (09:16)
[2016-10-24] MEDS: risperiDONE ODT 1 MG TAB PO SCH (09:16)
[2016-10-24 09:26] LABS: BICARBONATE 27.3 MEQ/L (21.0-32.0); POTASSIUM 4.2 MEQ/L (3.5-5.1)
--- NOTE | 2016-10-24 10:44 | RADRPT ---
EXAM DATE/TIME: 10/24/2016 10:03 [facility] COMPARISON: No previous studies available for comparison. INDICATIONS : Increased BUN/creatinine. MEDICAL HISTORY : Legally blind in right eye. Chest pain. HTN. COPD. Dypsnea. Diabetes. Bipolar disorder. Depression. A nxiety. SURGICAL HISTORY : Bilateral cataract surgery. ENCOUNTER: Initial ACUITY: 1 day PAIN SCORE: 0/10 LOCATION: Bilateral flank MEASUREMENTS: RIGHT KIDNEY: 13.5 x 6.4 x 6.8 cm LEFT KIDNEY: 12.9 x 6.3 x 7.0 cm FINDINGS: RIGHT KIDNEY: Renal cortex is normal in thickness and echotexture. No hydronephrosis, stone, or mass. LEFT KIDNEY: In the midpole of the left kidney there is a large hypoechoic structure measuring 3 cm which has the same echogenicity as the renal cortex. There are masslike characteristics with a rounded appearance. Renal cortex is otherwise normal. There is no evidence of hydronephrosis or stone. BLADDER: Within normal limits given the degree of distension. CONCLUSION: Prominent column of Franko versus midpole mass in the left kidney; CT of the kidneys with and without contrast recommended. Otherwise normal renal ultrasound. No evidence of hydronephrosis or nephrolithiasis. Wilmer Iglesias MD on October 24, 2016 at 10:38 Board Certified Radiologist. This report was verified electronically.
[2016-10-24] MEDS: TAMSULOSIN HCL 0.4 MG CAP PO SCH (14:09)
[2016-10-24 21:00] VITALS: BP 118/76; PULSE 68; RESP 16; TEMP 97; O2SAT 99
[2016-10-24] MEDS: risperiDONE ODT 2 MG TAB PO SCH (21:19)
[2016-10-25 05:28] VITALS: BP 118/73; PULSE 65; RESP 16; TEMP 97.8; O2SAT 97
[2016-10-25] MEDS: INSULIN ASPART SUPPLEMENTAL SCALE SQ SCH ×4 (06:17→20:53)
[2016-10-25] MEDS: glipiZIDE 10 MG TAB PO SCH ×2 (06:18→16:00)
[2016-10-25 07:58] LABS: AUTOMATED NEUTROPHIL # 5.5 TH/MM3 (1.8-7.7); BASOPHIL % 0.3 % (0.0-2.0); EOSINOPHIL # 0.1 TH/MM3 (0-0.4); EOSINOPHIL % 1.7 % (0.0-4.0); HEMO FLAGS DIFF FINAL; LYMPH % 16.8 % (9.0-44.0); LYMPHOCYTE # 1.2 TH/MM3 (1.0-4.8); MEAN CELL VOLUME 82.8 FL (80.0-100.0); MEAN CORPUSCULAR HEMOGLOBIN 28.1 PG (27.0-34.0); MEAN CORPUSCULAR HGB CONC 33.9 % (32.0-36.0); MONO % 4.6 % (0.0-8.0); NEUT % 76.6 % (16.0-70.0); PLATELET COUNT 206 TH/MM3 (150-450); RED BLOOD COUNT 4.59 MIL/MM3 (4.50-5.90); RED CELL DISTRIBUTION WIDTH 14.6 % (11.6-17.2); WHITE BLOOD COUNT 7.2 TH/MM3 (4.0-11.0)
[2016-10-25] MEDS: risperiDONE ODT 1 MG TAB PO SCH (08:39)
[2016-10-25] MEDS: metFORMIN HCL 500 MG TAB PO SCH (08:39)
[2016-10-25] MEDS: FENOFIBRATE 145 MG TAB PO SCH (08:39)
[2016-10-25] MEDS: CLOPIDOGREL 75 MG TAB PO SCH (08:39)
[2016-10-25] MEDS: carBAMazepine 200 MG TAB PO SCH (08:39)
[2016-10-25] MEDS: DOCUSATE SODIUM 100 MG CAP PO SCH ×2 (08:40→20:52)
[2016-10-25] MEDS: METOPROLOL TARTRATE 50 MG TAB PO SCH ×2 (08:40→20:52)
[2016-10-25 08:42] LABS: ANION GAP 6 MEQ/L (5-15); AST (GOT) 26 U/L (15-37); BLOOD UREA NITROGEN 23 MG/DL (7-18); CHLORIDE 106 MEQ/L (98-107); GLOMERULAR FILTRATION RATE 53 ML/MIN (>89); SODIUM (NA) 140 MEQ/L (136-145)
[2016-10-25 08:45] LABS: ALKALINE PHOSPHATASE 47 U/L (45-117); ALT (GPT) 33 U/L (12-78); TOTAL BILIRUBIN ADULT 0.3 MG/DL (0.2-1.0)
[2016-10-25] MEDS ORDERED: SITA50 PO (10:48)
[2016-10-25] MEDS ORDERED: PILL SPLITTER OTHER PRN (11:00)
--- NOTE | 2016-10-25 13:51 | HHI.PR ---
Subjective Remarks Follow-up visit HTN, anemia, Parkinson's disease, HLD, renal insufficiency. Patient seen and examined today. Discussed with patient results of renal ultrasound which includes a mass on his kidney that needs to have a CAT scan follow-up studies to be done. As per patient he is being followed by Dr. Davies , outpatient PCP. States he is going to follow-up with have been due to the CAT scan as ordered. Otherwise, denies pain and discomfort. Denies SOB/ dyspnea. Denies chest pain, palpitations, headaches, dizziness. Denies fevers, chills, n/v/d. Denies hematuria, dysuria. Objective Vitals Vital Signs Date Time Temp Pulse Resp B/P Pulse Ox O2 Delivery O2 Flow Rate FiO2 10/25/16 05:28 97.8 65 16 118/73 97 10/24/16 21:00 97.0 68 16 118/76 99 Result Diagram: 10/25/16 0730 10/25/16 0730 Imaging Last Impressions Renal Ultrasound 10/24/16 0000 Signed Impressions: Service Date/Time: Monday, October 24, 2016 10:03 - CONCLUSION: Prominent column of Franko versus midpole mass in the left kidney; CT of the kidneys with and without contrast recommended. Otherwise normal renal ultrasound. No evidence of hydronephrosis or nephrolithiasis. Wilmer Iglesias MD Objective Remarks GENERAL: This is a well-nourished, well-developed patient, in no apparent distress. SKIN: Warm and dry. HEAD: Atraumatic. Normocephalic. EYES: Pupils equal round and reactive. No scleral icterus. No injection or drainage. ENT: Nose without bleeding. Throat without erythema. Uvula midline. Airway patent. NECK: Trachea midline. No JVD or lymphadenopathy. CARDIOVASCULAR: Regular rate and rhythm without murmurs, gallops, or rubs. RESPIRATORY: Clear to auscultation. Breath sounds equal bilaterally. No wheezes , rales, or rhonchi. GASTROINTESTINAL: Abdomen soft, non-tender, nondistended. Bowel sounds active. MUSCULOSKELETAL: Extremities without clubbing, cyanosis, BLE trace edema. LLE stasis discoloration. NEUROLOGICAL: Awake and alert. Oriented to situation, person, place. Motor and sensory grossly within normal limits. Normal speech A/P Problem List: (1) DM type 2 (diabetes mellitus, type 2) ICD Code: E11.9 Status: Chronic (2) HTN (hypertension) ICD Code: I10 Status: Chronic Assessment and Plan Patient is a 56-year-old male with primary medical history of COPD, HTN, DM who came into the hospital brought in by police for psychiatric evaluation. As per report, patient was noted in his apartment complex to be going through the trash. He admits to not taking his medication as directed or being consistent about taking his medication. Also reported to be living alone and hearing voices and that people are talking to him telepathically which is confusing him. He is now admitted to inpatient psychiatry for further evaluation. Consulted for medical management. Hallucinations, schizoaffective disorder - managed by psychiatry team HTN - Hold lisinopril 5 mg daily due to a KCI, continue metoprolol 50 mg twice a day - Monitor BP trend. Within normal. DM 2 - Decrease metformin 500 mg twice a day, glipizide 10 mg twice a day - Hemoglobin A1c 11.1 - Insulin sliding scale, monitor for hypoglycemia - BG levels on accucheck without insulin coverage <150, pt. reports he did not take his metformin and glipizide because he is unable to refill it in outpatient - Discussed with patient importance of compliance - Discussed with patient possible discontinuation of metformin if creatinine continues to be elevated secondary to risk of lactic acidosis. He may be able to benefit with Januvia or Actos in combination with his glipizide or basal insulin. However, patient is at higher risk of noncompliance with insulin use since he is not even able to take by mouth metformin and glipizide as an outpatient. Acute kidney injury - Creatinine 1.45 --> 1.31 --> 1.30 - Possibly related to dehydration, patient's BUN also elevated - Avoid nephrotoxins - Check BMP tomorrow - Encourage by mouth fluid hydration - Ultrasound renal bladder showed prominent column of Franko versus pulmonary in the left kidney, CT of the kidneys with and without contrast recommended. Otherwise normal renal ultrasound. Evidence of hydronephrosis or nephrolithiasis. - Spoke with Dr. Bolton, requesting an outpatient CT scan should be done today as secondary to patient have problems with transportation going to his PCP and might not be able to follow-up. As per conversation, CT will be done and if results indicate possible nephrology follow up, will refer patient to psychiatric lpn as outpatient. - Use may elevated creatinine secondary to IV contrast use with CAT scan. IV fluid post CT scan will be done. Repeat BMP in the morning. - Continue to encourage good hydration. Discussed with patient risk of CT scan, including acute kidney injury. BPH - Continue tamsulosin DVT prop ambulatory Discussed with patient, nursing, Dr. Bolton, and Jeanie Jin [facility] October 25, 2016 13:51
[2016-10-25] MEDS: TAMSULOSIN HCL 0.4 MG CAP PO SCH (14:11)
[2016-10-25] MEDS: SODIUM CHLOR 0.9% 1000 ML INJ 1,000 ML IV SCH ×2 (15:00→20:00)
[2016-10-25] MEDS: MAGNESIUM HYDROXIDE SUSP 30 ML CUP PO PRN (15:38)
[2016-10-25] MEDS ORDERED: IOHEXOL 350 MG/ML 10 ML VIAL (for RAD DIAG) IV ONE (16:53)
--- NOTE | 2016-10-25 17:08 | RADRPT ---
EXAM DATE/TIME: 10/25/2016 16:21 [facility] COMPARISON: US KIDNEY/RENAL/BLADDER, October 24, 2016, 10:03. INDICATIONS : Abnormal renal ultrasound, evaluate possible renal mass. IV CONTRAST: 96 cc Omnipaque 350 (iohexol) IV ORAL CONTRAST: No oral contrast ingested. RADIATION DOSE: 22.35 CTDIvol (mGy) MEDICAL HISTORY : Myocardial infarction. copd, diabetes SURGICAL HISTORY : None. ENCOUNTER: Initial ACUITY: 1 day PAIN SCALE: 5/10 LOCATION: abdomen/kidneys TECHNIQUE: Volumetric scanning of the abdomen and pelvis was performed. Using automated exposure control and ad justment of the mA and/or kV according to patient size, radiation dose was kept as low as reasonably achievable to obtain optimal diagnostic quality images. FINDINGS: LOWER LUNGS: The visualized lower lungs are clear. LIVER: Homogeneous density without lesion. There is no dilation of the biliary tree. No calcified gallston es. SPLEEN: Mildly enlarged measuring 13.6 cm in craniocaudal dimension. PANCREAS: Within normal limits. KIDNEYS: Prominent column of Franko noted on the left. No evidence of hydronephrosis. ADRENAL GLANDS: Within normal limits. VASCULAR: There is no aortic aneurysm. BOWEL/MESENTERY: No evidence of bowel dilatation. No free air or free fluid. Appendix not identified. ABDOMINAL WALL: Fat-containing periumbilical hernia measuring 4.8 cm. RETROPERITONEUM: There is no lymphadenopathy. BLADDER: No wall thickening or mass. REPRODUCTIVE: Within normal limits. INGUINAL: There is no lymphadenopathy or hernia. MUSCULOSKELETAL: Degenerative findings of the lumbar spine. Mild osteoarthritic findings of the hips. CONCLUSION: 1. Kidneys within normal limits. Prominent column of Franko noted on the left. 2. Mild splenomegaly. 3. Fat containing periumbilical hernia. Salvador Jimenez MD on October 25, 2016 at 16:58 Board Certified Radiologist. This report was verified electronically.
[2016-10-25 18:43] VITALS: BP 109/63; PULSE 78; RESP 16; TEMP 97.9; O2SAT 99
[2016-10-25] MEDS: risperiDONE ODT 2 MG TAB PO SCH (20:52)
[2016-10-25] MEDS ORDERED: carBAMazepine 200 MG TAB PO SCH (21:00)
[2016-10-26] MEDS: SODIUM CHLOR 0.9% 1000 ML INJ 1,000 ML IV SCH ×2 (01:00→06:00)
[2016-10-26] MEDS: glipiZIDE 10 MG TAB PO SCH (06:43)
[2016-10-26] MEDS: INSULIN ASPART SUPPLEMENTAL SCALE SQ SCH ×2 (06:43→11:00)
[2016-10-26 06:45] VITALS: BP 123/74; PULSE 74; RESP 18; O2SAT 97
[2016-10-26 08:19] LABS: BICARBONATE 27.3 MEQ/L (21.0-32.0)
[2016-10-26] MEDS: DOCUSATE SODIUM 100 MG CAP PO SCH (08:56)
[2016-10-26] MEDS: CLOPIDOGREL 75 MG TAB PO SCH (08:57)
[2016-10-26] MEDS: METOPROLOL TARTRATE 50 MG TAB PO SCH (08:57)
[2016-10-26] MEDS: risperiDONE ODT 1 MG TAB PO SCH (08:57)
[2016-10-26] MEDS: carBAMazepine 200 MG TAB PO SCH (08:58)
[2016-10-26] MEDS: FENOFIBRATE 145 MG TAB PO SCH (08:58)
--- NOTE | 2016-10-26 10:47 | HHI.PR ---
Subjective Remarks Follow-up visit HTN, anemia, Parkinson's disease, HLD, renal insufficiency. Patient seen and examined today. States he is doing well. Discussed with patient results of CT abdomen and pelvis. Denies pain and discomfort. Denies SOB/ dyspnea. Denies chest pain, palpitations, headaches, dizziness. Denies fevers, chills, n/v/d. Denies hematuria, dysuria. Discuss that he will need to follow up with his PCP. Objective Vitals Vital Signs Date Time Temp Pulse Resp B/P Pulse Ox O2 Delivery O2 Flow Rate FiO2 10/26/16 06:45 74 18 123/74 97 10/25/16 18:43 97.9 78 16 109/63 99 I/O 10/25/16 10/25/16 10/25/16 10/26/16 10/26/16 10/26/16 07:00 15:00 23:00 07:00 15:00 23:00 Intake Total 480 ml 960 ml Balance 480 ml 960 ml Intake Oral 480 ml 960 ml # Voids 2 4 Result Diagram: 10/25/16 0730 10/26/16 0725 Imaging Last Impressions Abdomen/Pelvis CT 10/25/16 0000 Signed Impressions: Service Date/Time: Tuesday, October 25, 2016 16:21 - CONCLUSION: 1. Kidneys within normal limits. Prominent column of Franko noted on the left. 2. Mild splenomegaly. 3. Fat containing periumbilical hernia. Salvador Jimenez MD Renal Ultrasound 10/24/16 0000 Signed Impressions: Service Date/Time: Monday, October 24, 2016 10:03 - CONCLUSION: Prominent column of Franko versus midpole mass in the left kidney; CT of the kidneys with and without contrast recommended. Otherwise normal renal ultrasound. No evidence of hydronephrosis or nephrolithiasis. Wilmer Iglesias MD Objective Remarks GENERAL: This is a well-nourished, well-developed patient, in no apparent distress. SKIN: Warm and dry. HEAD: Atraumatic. Normocephalic. EYES: Pupils equal round and reactive. No scleral icterus. No injection or drainage. ENT: Nose without bleeding. Throat without erythema. Uvula midline. Airway patent. NECK: Trachea midline. No JVD or lymphadenopathy. CARDIOVASCULAR: Regular rate and rhythm without murmurs, gallops, or rubs. RESPIRATORY: Clear to auscultation. Breath sounds equal bilaterally. No wheezes , rales, or rhonchi. GASTROINTESTINAL: Abdomen soft, non-tender, nondistended. Bowel sounds active. MUSCULOSKELETAL: Extremities without clubbing, cyanosis, BLE trace edema. LLE stasis discoloration. NEUROLOGICAL: Awake and alert. Oriented to situation, person, place. Motor and sensory grossly within normal limits. Normal speech A/P Problem List: (1) DM type 2 (diabetes mellitus, type 2) ICD Code: E11.9 Status: Chronic (2) HTN (hypertension) ICD Code: I10 Status: Chronic Assessment and Plan Patient is a 56-year-old male with primary medical history of COPD, HTN, DM who came into the hospital brought in by police for psychiatric evaluation. As per report, patient was noted in his apartment complex to be going through the trash. He admits to not taking his medication as directed or being consistent about taking his medication. Also reported to be living alone and hearing voices and that people are talking to him telepathically which is confusing him. He is now admitted to inpatient psychiatry for further evaluation. Consulted for medical management. Hallucinations, schizoaffective disorder - managed by psychiatry team HTN - Hold lisinopril 5 mg daily due to a SWETA, continue metoprolol 50 mg twice a day - Monitor BP trend. Within normal. DM 2 - Decrease metformin 500 mg twice a day, glipizide 10 mg twice a day - Hemoglobin A1c 11.1 - Insulin sliding scale, monitor for hypoglycemia - BG levels on accucheck without insulin coverage <150, pt. reports he did not take his metformin and glipizide because he is unable to refill it in outpatient - Discussed with patient importance of compliance - Discussed with patient discontinuation of metformin creatinine continues to be elevated secondary to risk of lactic acidosis. - He may be able to benefit with Januvia in combination with his glipizide. However, patient is at higher risk of noncompliance with insulin use since he is not even able to take by mouth metformin and glipizide as an outpatient. - Follow up with PCP, HgA1C in 3 mos Acute kidney injury - Creatinine 1.45 --> 1.31 --> 1.30 - Possibly related to dehydration, patient's BUN also elevated - Avoid nephrotoxins - Check BMP tomorrow - Encourage by mouth fluid hydration - Ultrasound renal bladder showed prominent column of Franko versus midpole mass in the left kidney, CT of the kidneys with and without contrast recommended. Otherwise normal renal ultrasound. Evidence of hydronephrosis or nephrolithiasis. - Spoke with Dr. Bolton, requesting an outpatient CT scan should be done today as secondary to patient have problems with transportation going to his PCP and might not be able to follow-up. As per conversation, CT will be done and if results indicate possible nephrology follow up, will refer patient to tool analyst as outpatient. - Use may elevated creatinine secondary to IV contrast use with CAT scan. IV fluid post CT scan will be done. Repeat BMP in the morning. - Continue to encourage good hydration. Discussed with patient risk of CT scan, including acute kidney injury. - CT Abdomen and pelvis showed 1. Kidneys within normal limits. Prominent column of Franko noted on the left. 2. Mild splenomegaly. 3. Fat containing periumbilical hernia. - Discuss result with Pt. Continue hydration and follow up with PCP. -BMP Creatinine improved with IVF BPH - Continue tamsulosin DVT prop ambulatory Stable from the hospitalist standpoint. Patient is cleared for Discharge. Discussed with patient, nursing, Dr. Bolton, and Jeanie Metz October 26, 2016 10:47 Hellen Vallecillo MD October 26, 2016 14:42
[2016-10-26] MEDS ORDERED: RISP1TAB54 PO (11:15)
[2016-10-26] MEDS ORDERED: CARB200T PO ×2 (11:15)
[2016-10-26] MEDS ORDERED: RISPM2 PO (11:15)
[2016-10-26] MEDS ORDERED: BENZ2TAB PO (11:15)
[2016-10-26] MEDS ORDERED: METO50TA PO (11:22)
[2016-10-26] MEDS ORDERED: BENZTROPINE MESYLATE 2 MG TAB PO PRN (12:00)
--- NOTE | 2016-10-27 08:19 | MD ---
cc: MICHAEL LARSON M.D. ADMISSION DATE: 10/13/2016 DISCHARGE DATE: 10/26/2016 ADMISSION DIAGNOSIS [place] I: Bipolar affective disorder, manic phase with psychotic features. [place] II: No diagnosis. [place] III: Diabetes mellitus, hypertension, status post stripping of varicose veins, status post bilateral cataract extraction, hyperlipidemia, questionable COPD. [place] IV: Severity of psychosocial stressors, moderate, i.e. chronic psychiatric illness, chronic medical illnesses, limited financial resources. [place] V: Current GAF score 30. DISCHARGE DIAGNOSIS [place] I: Bipolar affective disorder, manic phase with psychotic features. [place] II: No diagnosis. [place] III: Diabetes mellitus, hypertension, status post stripping of varicose veins, status post bilateral cataract extraction, hyperlipidemia, questionable COPD. [place] IV: Severity of psychosocial stressors, moderate, i.e. chronic psychiatric illness, chronic medical illnesses, limited financial resources. [place] V: Current GAF score 60. BRIEF HISTORY This 56-year-old white male was brought to the emergency room voluntarily because of increasing agitation, auditory hallucinations, bizarre behavior, preoccupation with congregation thoughts, delusions of persecution and grandeur. Please refer to my initial evaluation for details. LAB WORKUP CBC with differential was done on different dates and the last one on 10/25/2016 was essentially unremarkable. CMP was also repeated on different dates. His BUN and serum creatinine were slightly elevated. The last one done on 10/26 showed his BUN 19 and serum creatinine 1.2. Urine drug screen was negative. Serum lithium level on admission was 1.8 and as such his lithium was held. Repeated on 10/19 it dropped to 1.0. Serum Tegretol level on 10/25/2016 was 3.3 and the dose of Tegretol was increased from 200 mg per day to 300 mg per day. Routine urinalysis was essentially unremarkable. Renal ultrasound showed prominent column of Franko versus mid pole mass in the left kidney. CT of the kidney with and without contrast was recommended. Abdominal and pelvis CT scan showed kidneys within normal limits, prominent column of Franko noted on the left. Mild splenomegaly and fat containing periumbilical hernia. HOSPITAL COURSE When initially evaluated he gave a history of typical manic episode, i.e., psychomotor agitation, decreased need for sleep, delusions of grandeur, i.e., he could communicate with others through telepathy, delusions of persecution i.e., believing that his medicines were poisoned, etc. His current decompensation was felt to be due to noncompliance with medications. Upon admission his serum lithium level was high, though he did not exhibit any signs or symptoms of lithium toxicity. Medical consult was requested. His blood pressure at times was also elevated. His blood sugar was managed. In view of impaired renal functioning Glucophage was discontinued and he was switched to Januvia. I reviewed the case with the [facility] periodically. I again reviewed the case with them today and I was told that he was medically cleared and no nephrology followup is indicated but he needs to continue follow up with his primary care physician. I had lengthy discussions with him in regards to change in his drug regimen. He was educated about the pros and cons of all the options and he agreed to try Tegretol. He had previously tried Depakote to which he had not responded well and claimed that he became "comatose and peed all over myself". Historically has done well on lithium but in view of recent renal impairment lithium was not felt to the best choice. To control his psychotic symptoms he was started on Risperdal. The dose was gradually titrated. No auditory hallucinations and the delusions gradually began to subside and by the end of the admission had disappeared. Throughout this hospital stay he was very compliant with the treatment plan and recognized his mistake of discontinuing/ noncompliance with medications. He participated in all the activities well. Throughout this hospital stay he did not exhibit any aggressive or self-destructive behavior nor did he make any threats of harm to self or others. Discharge plans were discussed with him as well as with the treatment team and it was felt that he has received optimum benefit out of this admission and could be discharged home. The patient actively participated in his discharge plans. At the time of discharge he is denying any suicidal or homicidal ideations. His psychotic symptoms are under control. He is being discharged with the following recommendations: A psychiatric followup with me within a week. Medical followup with his primary care physician. MEDICATIONS Discharge medications are: 1. Cogentin 2 mg p.o. daily p.r.n. for EPS #10, one refill. 2. Tegretol 200 mg one p.o. daily #15, one refill. 3. Tegretol 100 mg p.o. q.h.s. #15, one refill. 4. Risperdal M 2 mg p.o. q.h.s. #15, one refill. 5. Risperdal M 2 mg p.o. daily #15, one refill. 6. Januvia 50 mg p.o. daily #30. 7. Plavix 75 mg p.o. daily #30, no refill. 8. Colace 300 mg p.o. q.h.s. #60, no refill. 9. Fenofibrate 134 mg p.o. daily #30, no refill. 10. Glipizide 10 mg p.o. b.i.d. a.c. #60, no refill. 11. Metoprolol 50 mg p.o. b.i.d. #60, no refill. 12. Tamsulosin 0.4 mg p.o. daily #30, no refill. MD GAIL Rowell/LILIANA /11:19 AM /8:11 AM
== END 2016-10-26 16:05 | disposition home or self-care (01) | DRG 885 ==
LOC: NEPD 12:00 → NEDA 17:59 → H260 20:14 → H4EA 10-25 18:25
PROVIDERS: ADMIT Psychiatry & Neurology Psychiatry; ATTEND Psychiatry & Neurology Psychiatry
DX: F31.9 Bipolar disorder, unspecified (principal); N17.9 Acute kidney failure, unspecified; G20 Parkinson's disease; E11.9 Type 2 diabetes mellitus without complications; J44.9 Chronic obstructive pulmonary disease, unspecified; I10 Essential (primary) hypertension; E78.5 Hyperlipidemia, unspecified; D64.9 Anemia, unspecified; F25.9 Schizoaffective disorder, unspecified; F22 Delusional disorders; I25.2 Old myocardial infarction; K42.9 Umbilical hernia without obstruction or gangrene; K59.00 Constipation, unspecified; K64.9 Unspecified hemorrhoids; N40.0 Benign prostatic hyperplasia without lower urinary tract symptoms; Z79.84 Long term (current) use of oral hypoglycemic drugs; Z79.899 Other long term (current) drug therapy; Z91.14 Patient's other noncompliance with medication regimen
CPT/HCPCS: 74178; 76775; 80048; 80053; 80061; 80156; 80178; 80307; 81001; 82948; 83036; 84439; 84443; 85025; 99284; J1815; J7030; Q9967

== ENCOUNTER 2017-04-21 18:01 | Inpatient (IN) | payer MEDICARE, OTHER ==
[~2017-04-21] VITALS: Ht 177.8 cm; Wt 135.7 kg
[~2017-04-21 18:01] MED LIST changes: -ATOR40TA49 PO; +BENZ2TAB PO; -BUPR100CR PO; +BUPR150CR PO; +CARB200T PO; -CHLO.12%30 SSP; +COLA100C3 PO; -GLIP10 PO; +GLIP10TA6 PO; -GLUCTAB PO; -IBUP-232 PO; -LANS30 PO; -LITH150C7 PO; +LITH600C PO; -METO50 PO; +METO50TA PO; -PENI500T PO; -PLAV75TA PO; +PLAV75TA29 PO; +RISP1TAB54 PO; +RISPM2 PO; +SITA50 PO; -TAB-TAB PO; +TAMS0.4C4 PO
[2017-04-21 18:03] VITALS: BP 132/70; PULSE 103; RESP 12; TEMP 98.6; O2SAT 96
[2017-04-21 18:45] LABS: AUTOMATED NEUTROPHIL # 7.2 TH/MM3 (1.8-7.7); BASOPHIL % 0.5 % (0.0-2.0); EOSINOPHIL # 0.1 TH/MM3 (0-0.4); EOSINOPHIL % 0.8 % (0.0-4.0); HEMATOCRIT 36.4 % (39.0-51.0); HEMOGLOBIN 12.8 GM/DL (13.0-17.0); LYMPHOCYTE # 1.5 TH/MM3 (1.0-4.8); MEAN CORPUSCULAR HEMOGLOBIN 29.2 PG (27.0-34.0); MEAN CORPUSCULAR HGB CONC 35.2 % (32.0-36.0); MONO % 5.6 % (0.0-8.0); MONOCYTE # 0.5 TH/MM3 (0-0.9); NEUT % 77.1 % (16.0-70.0); PLATELET COUNT 180 TH/MM3 (150-450); RED BLOOD COUNT 4.39 MIL/MM3 (4.50-5.90); RED CELL DISTRIBUTION WIDTH 15.5 % (11.6-17.2); WHITE BLOOD COUNT 9.3 TH/MM3 (4.0-11.0)
[2017-04-21 19:01] LABS: ALBUMIN 3.6 GM/DL (3.4-5.0); ALT (GPT) 29 U/L (12-78); AST (GOT) 20 U/L (15-37); BICARBONATE 23.7 MEQ/L (21.0-32.0); BLOOD UREA NITROGEN 21 MG/DL (7-18); CALCIUM 9.2 MG/DL (8.5-10.1); CHLORIDE 104 MEQ/L (98-107); CREATININE 1.24 MG/DL (0.60-1.30); GLOMERULAR FILTRATION RATE 61 ML/MIN (>89); GLUCOSE,RANDOM 123 MG/DL (74-106); SODIUM (NA) 138 MEQ/L (136-145)
[2017-04-21 19:04] LABS: ALKALINE PHOSPHATASE 104 U/L (45-117); TOTAL BILIRUBIN ADULT 0.2 MG/DL (0.2-1.0); TOTAL PROTEIN 7.3 GM/DL (6.4-8.2)
[2017-04-21 20:20] VITALS: BP 137/84; PULSE 101; RESP 16; TEMP 99.1; O2SAT 100
--- NOTE | 2017-04-21 20:50 | PD ---
HPI Chief Complaint: Psychiatric Symptoms Time Seen by Provider: 20:32 Travel History International Travel<30 days: No Contact w/Intl Traveler<30days: No Traveled to known affect area: No History of Present Illness HPI 56-year-old male is here voluntarily for psychiatric evaluation. Patient was seen by his psychiatrist today, and asked to come in to the hospital for further psychiatric evaluation for suicidal ideation. Patient currently is not a Moore act, and denies current suicidal ideation. He has no acute medical complaints. He has no known drug allergies. PFSH Past Medical History Arthritis: No Asthma: No Bipolar Disorder: Yes Anxiety: Yes Depression: Yes Heart Rhythm Problems: No Cancer: No Cardiovascular Problems: Yes (CT 2012) High Cholesterol: No Chest Pain: Yes Congestive Heart Failure: No COPD: Yes Diabetes: Yes Diminished Hearing: No Genitourinary: No Headaches: No Hypertension: Yes Immune Disorder: No Musculoskeletal: Yes Neurologic: No Psychiatric: Yes (Bipolar Dx as of 1980 ) Reproductive: No Respiratory: Yes Seizures: No Sleep Apnea: No Thyroid Disease: No Past Surgical History Abdominal Surgery: No Cardiac Surgery: No Ear Surgery: No Endocrine Surgery: No Eye Surgery: Yes (CATARACT SURGERY BILATERAL) Genitourinary Surgery: No Gynecologic Surgery: No Oral Surgery: No Thoracic Surgery: No Social History Alcohol Use: Yes (occ) Tobacco Use: No Substance Use: No Allergies-Medications (Allergen,Severity, Reaction): Coded Allergies: No Known Allergies (Verified , 10/13/16) Reported Meds & Prescriptions Reported Meds & Active Scripts Active Metoprolol Tartrate 50 Mg Tab 50 Mg PO BID Risperdal M-Tab (Risperidone) 1 Mg Tab 2 Mg PO DAILY Risperdal M-Tab (Risperidone) 2 Mg Tab 2 Mg PO HS Carbamazepine 200 Mg Tab 100 Mg PO HS Carbamazepine 200 Mg Tab 200 Mg PO DAILY Benztropine (Benztropine Mesylate) 2 Mg Tab 2 Mg PO DAILY PRN Januvia (Sitagliptin Phosphate) 50 Mg Tab 50 Mg PO DAILY Glipizide 10 Mg Tab 10 Mg PO BIDAC Take 30 minutes before a meal Plavix (Clopidogrel Bisulfate) 75 Mg Tab 75 Mg PO DAILY Tamsulosin (Tamsulosin HCl) 0.4 Mg Cap 0.4 Mg PO DAILY@1400 Reported Wellbutrin SR 12 HR (Bupropion HCl) 150 Mg Tab 150 Mg PO DAILY Colace (Docusate Sodium) 100 Mg Cap 300 Mg PO HS Fenofibrate Micronized 134 Mg Cap 134 Mg PO DAILY [place] Carbonate 600 Mg Cap 600 Mg PO BID Review of Systems Except as stated in HPI: all other systems reviewed are Neg General / Constitutional: No: Fever Eyes: No: Visual changes HENT: No: Headaches Cardiovascular: No: Chest Pain or Discomfort Respiratory: No: Shortness of Breath Gastrointestinal: No: Abdominal Pain Genitourinary: No: Dysuria Musculoskeletal: No: Pain Skin: No Rash Neurologic: No: Weakness Psychiatric: No: Depression Endocrine: No: Polydipsia Hematologic/Lymphatic: No: Easy Bruising Physical Exam Narrative GENERAL: Patient appears in no acute distress. SKIN: Warm and dry. Normal color. Normal turgor. Patient has chronic lower extremity venous stasis without ulceration or cellulitis. HEAD: Atraumatic. Normocephalic. EYES: Pupils equal and round. No scleral icterus. No injection or drainage. ENT: No nasal bleeding or discharge. Mucous membranes pink and moist. Pharynx is clear. Airway is patent. NECK: Trachea midline. Supple and nontender. CARDIOVASCULAR: Regular rate and rhythm. No murmurs gallops or rubs. RESPIRATORY: No accessory muscle use. Clear to auscultation. Breath sounds equal bilaterally. GASTROINTESTINAL: Abdomen soft, non-tender, nondistended. Hepatic and splenic margins not palpable. MUSCULOSKELETAL: Extremities without clubbing, cyanosis, or edema. No obvious deformities. NEUROLOGICAL: Awake and alert. No obvious cranial nerve deficits. Motor grossly within normal limits. Five out of 5 muscle strength in the arms and legs. Normal speech. PSYCHIATRIC: Appropriate mood and affect; insight and judgment normal. Data Data Last Documented VS Vital Signs Date Time Temp Pulse Resp B/P (MAP) Pulse Ox O2 Delivery O2 Flow Rate FiO2 04/21/17 20:20 99.1 101 16 137/84 (101) 100 Room Air Orders Orders Complete Blood Count With Diff (04/21/17 18:07) Comprehensive Metabolic Panel (04/21/17 18:07) Drug Screen, Random Urine (04/21/17 18:07) Psych Screen (04/21/17 20:13) Labs Laboratory Tests Test 04/21/17 18:18 White Blood Count 9.3 TH/MM3 Red Blood Count 4.39 MIL/MM3 Hemoglobin 12.8 GM/DL Hematocrit 36.4 % Mean Corpuscular Volume 83.0 FL Mean Corpuscular Hemoglobin 29.2 PG Mean Corpuscular Hemoglobin Concent 35.2 % Red Cell Distribution Width 15.5 % Platelet Count 180 TH/MM3 Mean Platelet Volume 8.0 FL Neutrophils (%) (Auto) 77.1 % Lymphocytes (%) (Auto) 16.0 % Monocytes (%) (Auto) 5.6 % Eosinophils (%) (Auto) 0.8 % Basophils (%) (Auto) 0.5 % Neutrophils # (Auto) 7.2 TH/MM3 Lymphocytes # (Auto) 1.5 TH/MM3 Monocytes # (Auto) 0.5 TH/MM3 Eosinophils # (Auto) 0.1 TH/MM3 Basophils # (Auto) 0.0 TH/MM3 CBC Comment DIFF FINAL Differential Comment Blood Urea Nitrogen 21 MG/DL Creatinine 1.24 MG/DL Random Glucose 123 MG/DL Total Protein 7.3 GM/DL Albumin 3.6 GM/DL Calcium Level 9.2 MG/DL Alkaline Phosphatase 104 U/L Aspartate Amino Transf (AST/SGOT) 20 U/L Alanine Aminotransferase (ALT/SGPT) 29 U/L Total Bilirubin 0.2 MG/DL Sodium Level 138 MEQ/L Potassium Level 3.8 MEQ/L Chloride Level 104 MEQ/L Carbon Dioxide Level 23.7 MEQ/L Anion Gap 10 MEQ/L Estimat Glomerular Filtration Rate 61 ML/MIN [facility] Medical Decision Making Medical Screen Exam Complete: Yes Emergency Medical Condition: Yes Medical Record Reviewed: Yes Differential Diagnosis Depression. Suicidal ideation. Medical clearance for psychiatric evaluation Narrative Course Psychiatric labs ordered as per protocol. Patient is medically cleared for psychiatric evaluation. Condition: Stable Balwinder Bustamante Apr 21, 2017 20:50
[2017-04-21] MEDS ORDERED: carBAMazepine 200 MG TAB PO ONE (21:00)
[2017-04-21] MEDS ORDERED: LITHIUM CARBONATE 300 MG TAB PO ONE (21:00)
[2017-04-21] MEDS ORDERED: risperiDONE 1 MG TAB PO ONE (21:00)
[2017-04-21] MEDS ORDERED: RISP2TAB37 PO (21:30)
[2017-04-21] MEDS ORDERED: METF1000 PO (21:30)
[2017-04-21] MEDS ORDERED: ATOR40TA16 PO (21:31)
[2017-04-21] MEDS ORDERED: FURO20TA PO (21:33)
[2017-04-21] MEDS ORDERED: LISI-519 PO (21:33)
[2017-04-21] MEDS ORDERED: BENZ0.5T PO (21:35)
[2017-04-21] MEDS ORDERED: CARB100C CHEW (21:39)
[2017-04-21] MEDS ORDERED: CARB200T PO (21:39)
[2017-04-22 00:08] VITALS: BP 144/78; PULSE 88; RESP 18; TEMP 98.1; O2SAT 95
[2017-04-22] MEDS ORDERED: ALUMINUM/MAGNESIUM/SIMETH 30 ML CUP PO PRN (00:45)
[2017-04-22] MEDS ORDERED: LORazepam 2 MG/ML VIAL IM PRN (00:45)
[2017-04-22] MEDS ORDERED: ACETAMINOPHEN 325 MG TAB PO PRN (00:45)
[2017-04-22] MEDS ORDERED: MAGNESIUM HYDROXIDE SUSP 30 ML CUP PO PRN (00:45)
[2017-04-22 06:08] VITALS: BP 161/81; PULSE 89; RESP 16; TEMP 97.9; O2SAT 96
--- NOTE | 2017-04-22 08:42 | PD.CONS ---
[facility] By Dr Singh psychiat[facility] Reason for Consult medical management Primary Care Physician Dylan (Ismael) MD Samson Diagnoses: History of Present Illness 56-year-old male with PMH of CAD, RI 2012 with stent placement, HTN, HLD, DM2 came to the ED for voluntarily psychiatric evaluation. Patient was seen by his psychiatrist prior to admission, and asked to come in to the hospital for further psychiatric evaluation for suicidal ideation. Patient currently is not a Moore act, and denies current suicidal ideation. He has no acute medical complaints. He has no known drug allergies. He denies having any cp, sob, papitations, n/v/d/c. No diaphoresis. Eatign well. No LE edema. Has venous stasis dermatitis bilateral legs. CAD, 2012 with stent placement, HTN, HLD, DM2 Metoprolol Tartrate 50 Mg Tab 50 Mg PO BID Risperdal M-Tab (Risperidone) 1 Mg Tab 2 Mg PO DAILY Risperdal M-Tab (Risperidone) 2 Mg Tab 2 Mg PO HS Carbamazepine 200 Mg Tab 100 Mg PO HS Carbamazepine 200 Mg Tab 200 Mg PO DAILY Benztropine (Benztropine Mesylate) 2 Mg Tab 2 Mg PO DAILY PRN Januvia (Sitagliptin Phosphate) 50 Mg Tab 50 Mg PO DAILY Glipizide 10 Mg Tab 10 Mg PO BIDAC Take 30 minutes before a meal Plavix (Clopidogrel Bisulfate) 75 Mg Tab 75 Mg PO DAILY Tamsulosin (Tamsulosin HCl) 0.4 Mg Cap 0.4 Mg PO DAILY@1400 Reported Wellbutrin SR 12 HR (Bupropion HCl) 150 Mg Tab 150 Mg PO DAILY Colace (Docusate Sodium) 100 Mg Cap 300 Mg PO HS Fenofibrate Micronized 134 Mg Cap 134 Mg PO DAILY [place] Carbonate 600 Mg Cap 600 Mg PO BID Depression. Suicidal ideation. bipolar disorder Management per psychiatry Review of Systems Except as stated in HPI: all other systems reviewed are Neg Past Family Social History Allergies: Coded Allergies: No Known Allergies (Verified , 10/13/16) Past Medical History CAD, RI 2012 with stent placement, HTN, HLD, DM2 Metoprolol Tartrate 50 Mg Tab 50 Mg PO BID Risperdal M-Tab (Risperidone) 1 Mg Tab 2 Mg PO DAILY Risperdal M-Tab (Risperidone) 2 Mg Tab 2 Mg PO HS Carbamazepine 200 Mg Tab 100 Mg PO HS Carbamazepine 200 Mg Tab 200 Mg PO DAILY Benztropine (Benztropine Mesylate) 2 Mg Tab 2 Mg PO DAILY PRN Januvia (Sitagliptin Phosphate) 50 Mg Tab 50 Mg PO DAILY Glipizide 10 Mg Tab 10 Mg PO BIDAC Take 30 minutes before a meal Plavix (Clopidogrel Bisulfate) 75 Mg Tab 75 Mg PO DAILY Tamsulosin (Tamsulosin HCl) 0.4 Mg Cap 0.4 Mg PO DAILY@1400 Reported Wellbutrin SR 12 HR (Bupropion HCl) 150 Mg Tab 150 Mg PO DAILY Colace (Docusate Sodium) 100 Mg Cap 300 Mg PO HS Fenofibrate Micronized 134 Mg Cap 134 Mg PO DAILY [place] Carbonate 600 Mg Cap 600 Mg PO BID Depression. Suicidal ideation. bipolar disorder Management per psychiatry Past Surgical History Bilateral eye cataract surgery Reported Medications Reported Meds & Active Scripts Active Metoprolol Tartrate 50 Mg Tab 50 Mg PO BID Glipizide 10 Mg Tab 10 Mg PO BIDAC Take 30 minutes before a meal Plavix (Clopidogrel Bisulfate) 75 Mg Tab 75 Mg PO DAILY Tamsulosin (Tamsulosin HCl) 0.4 Mg Cap 0.4 Mg PO DAILY@1400 Reported Carbamazepine 200 Mg Tab 200 Mg PO HS Carbamazepine 100 Mg Chew 100 Mg CHEW DAILY Benztropine (Benztropine Mesylate) 0.5 Mg Tab 2 Mg PO DAILY Lisinopril 5 Mg Tab 5 Mg PO DAILY Furosemide 20 Mg Tab 20 Mg PO DAILY Atorvastatin (Atorvastatin Calcium) 40 Mg Tab 40 Mg PO HS Metformin (Metformin HCl) 1,000 Mg Tab 1,000 Mg PO DAILY With a meal Risperdal (Risperidone) 2 Mg Tab 2 Mg PO BID Family History Father had RI at 50s, brother RI at age of 40s Diabetes also runs in family Social History Denies EtOH use, illicit drug use or tobacco use. Physical Exam Vital Signs Vital Signs Date Time Temp Pulse Resp B/P (MAP) Pulse Ox O2 Delivery O2 Flow Rate FiO2 04/22/17 06:08 97.9 89 16 161/81 (107) 96 04/22/17 00:08 98.1 88 18 144/78 (100) 95 04/21/17 23:59 04/21/17 20:20 99.1 101 16 137/84 (101) 100 Room Air 04/21/17 18:03 98.6 103 12 132/70 (90 96 Physical Exam GENERAL: This is a well-nourished, well-developed patient, in no apparent distress. SKIN: Bilateral stasis dermatitis. Cool and dry. HEAD: Atraumatic. Normocephalic. No temporal or scalp tenderness. EYES: Pupils equal round and reactive. Extraocular motions intact. No scleral icterus. No injection or drainage. ENT: Nose without bleeding, purulent drainage or septal hematoma. Throat without erythema, tonsillar hypertrophy or exudate. Uvula midline. Airway patent. NECK: Trachea midline. No JVD or lymphadenopathy. Supple, nontender, no meningeal signs. CARDIOVASCULAR: Regular rate and rhythm without murmurs, gallops, or rubs. RESPIRATORY: Clear to auscultation. Breath sounds equal bilaterally. No wheezes , rales, or rhonchi. GASTROINTESTINAL: Abdomen soft, non-tender, nondistended. No hepato-splenomegaly , or palpable masses. No guarding. MUSCULOSKELETAL: Extremities without clubbing, cyanosis, or edema. No joint tenderness, effusion, or edema noted. No calf tenderness. Negative Homans sign bilaterally. NEUROLOGICAL: Awake and alert. Cranial nerves II through XII intact. Motor and sensory grossly within normal limits. Five out of 5 muscle strength in all muscle groups. Normal speech. Laboratory Laboratory Tests Test 04/21/17 18:18 04/21/17 21:05 04/21/17 21:10 White Blood Count 9.3 Red Blood Count 4.39 Hemoglobin 12.8 Hematocrit 36.4 Mean Corpuscular Volume 83.0 Mean Corpuscular Hemoglobin 29.2 Mean Corpuscular Hemoglobin Concent 35.2 Red Cell Distribution Width 15.5 Platelet Count 180 Mean Platelet Volume 8.0 Neutrophils (%) (Auto) 77.1 Lymphocytes (%) (Auto) 16.0 Monocytes (%) (Auto) 5.6 Eosinophils (%) (Auto) 0.8 Basophils (%) (Auto) 0.5 Neutrophils # (Auto) 7.2 Lymphocytes # (Auto) 1.5 Monocytes # (Auto) 0.5 Eosinophils # (Auto) 0.1 Basophils # (Auto) 0.0 CBC Comment DIFF FINAL Differential Comment Blood Urea Nitrogen 21 Creatinine 1.24 Random Glucose 123 Total Protein 7.3 Albumin 3.6 Calcium Level 9.2 Alkaline Phosphatase 104 Aspartate Amino Transf (AST/SGOT) 20 Alanine Aminotransferase (ALT/SGPT) 29 Total Bilirubin 0.2 Sodium Level 138 Potassium Level 3.8 Chloride Level 104 Carbon Dioxide Level 23.7 Anion Gap 10 Estimat Glomerular Filtration Rate 61 [place] Level LESS THAN 0.1 Urine Opiates Screen NEG Urine Barbiturates Screen NEG Urine Amphetamines Screen NEG Urine Benzodiazepines Screen NEG Urine Cocaine Screen NEG Urine Cannabinoids Screen NEG Result Diagram: 04/21/17181704/21/171817 Assessment and Plan Assessment and Plan Depression. Suicidal ideation. bipolar disorder Management per psychiatry HTN. H/o [place] with stent placement in 2012. Currently he has no chest pain, asymptomatic. Continue home meds metoprolol, plavix. Monitor BP BPH continue tamsulosin Diabetes mellitus 2, failry controlled. Continue home meds. Accuchecks. Stasis dermatitis. wound care DVT ppx ambulation Thank you ofr this consultation will follow along Discussed Condition With patient, nurse Hellen Vallecillo MD Apr 22, 2017 08:42
[2017-04-22] MEDS: METOPROLOL TARTRATE 50 MG TAB PO SCH ×2 (08:54→20:38)
[2017-04-22] MEDS: CLOPIDOGREL 75 MG TAB PO SCH (08:54)
[2017-04-22] MEDS: FUROSEMIDE 20 MG TAB PO SCH (08:55)
[2017-04-22] MEDS: glipiZIDE 10 MG TAB PO SCH ×2 (08:55→17:43)
[2017-04-22] MEDS: LISINOPRIL 5 MG TAB PO SCH (08:55)
[2017-04-22] MEDS: metFORMIN HCL 500 MG TAB PO SCH (08:55)
[2017-04-22] MEDS ORDERED: BENZTROPINE MESYLATE 2 MG TAB PO SCH (09:00)
[2017-04-22] MEDS ORDERED: risperiDONE 1 MG TAB PO SCH (09:00)
[2017-04-22 13:02] LABS: CARBAMAZEPINE (TEGRETOL) 5.7 MCG/ML (4.0-12.0); FREE T4 0.9 NG/DL (0.76-1.46)
[2017-04-22] MEDS: TAMSULOSIN HCL 0.4 MG CAP PO SCH (13:36)
[2017-04-22 18:30] VITALS: BP 119/66; PULSE 82; RESP 17; TEMP 97.6; O2SAT 97
--- NOTE | 2017-04-22 20:04 | MH ---
cc: NATHALIESHAVONNEMICHAEL DATE OF ADMISSION 04/21/2017 PRESENTING CHIEF COMPLAINT AND HISTORY OF PRESENT ILLNESS This 56 year old white male, a patient of mine for many years, was admitted through the emergency room voluntarily because of increasing depression and suicidal thoughts. On the day of admission, he called the office stating that he was "very depressed and did not care whether I live or ", although denying any suicidal intent. He also stated that he has become more self isolative, was not sleeping well and would cry easily. Considering this, he was recommended evaluation in the emergency room which he complied with. He was evaluated by the psychiatric screener and the case was discussed with me. During this evaluation, he indicated that his medications were not working and that he missed his mother who [place] of 2015 and that he was increasingly feeling hopeless and useless. He denied any active suicidal thoughts or intent but made the following statement "if someone walked up to me and blew my head off with a shotgun I would be okay". As I mentioned, Mr. Mcduffie has been under my care for many years and carries a diagnosis of bipolar affective disorder. He was last admitted at this unit in September of this year in a manic state i.e. displayed psychomotor agitation, experienced delusions of grandeur and persecution, extreme preoccupation with yarsanism thoughts. Historically has done very well on lithium but during his last admission, his renal functions were somewhat impaired and, as such, this was discontinued after input from the medical consultants. Depakote has not been very effective as, according to him, i was tried in the past and he became "comatose". Under the circumstances, a trial of Tegretol was recommended to which he agreed and responded quite well. During his outpatient follow up, he began to feel depressed and was started on Wellbutrin which again had to be discontinued because he became somewhat hypomanic. He was last seen in the office about 3 or 4 weeks ago at which time he seemed at his baseline on combination of Tegretol and Risperdal. Compliance at times has been an issue which was addressed. At the time of this evaluation, Mr. Mcduffie was pleasant and his usual appreciative and complementary "I want to thank you for recommending I come to the hospital. I'm beginning to feel better already. At home, I was all by myself, nobody to talk to and I was feeling useless and hopeless. Ever since I have been here, I have been talking to people, other patients and it has helped me feel better". It should be noted that he has limited support system. He was very close to his mother who lived in the area and he used to visit her almost daily. Since her , he has not had much in the form of support system and is more or less a loner. I had recommended placement in an assisted living facility to him to which he was agreeable, but did not pursue it because of limited financial resources. He mentioned over the past 2 weeks he has also been having difficulty falling asleep, however, denied any decline in his appetite. When inquired about the suicidal thoughts he responded "I'm too chicken. I'm never going to do it. I never have". Further exploration did not reveal any other significant psychosocial stressor. PAST PSYCHIATRIC HISTORY, PAST MEDICAL HISTORY, FAMILY HISTORY, PERSONAL HISTORY Please refer to my previous evaluations for details. Suffice to say that he has past medical history of coronary artery disease, myocardial infarction status post stent placement in 2012, hypertension, hyperlipidemia, diabetes mellitus type 2. MEDICATIONS Current are 1. Metoprolol 50 mg b.i.d. 2. Risperdal 2 mg q. a.m. and qhs. 3. Tegretol 300 mg per day. 4. Cogentin 2 mg p.o. daily. 5. Januvia 50 mg daily. 6. Glipizide 10 mg b.i.d. a.c. 7. Plavix 75 mg daily. 8. Tamsulosin 0.4 mg daily. CLINICAL OBSERVATION/MENTAL STATUS EXAM At the time of this evaluation, Mr. Mcduffie presented as a casually dressed reasonably well-groomed white male who looked his stated age. He was pleasant, polite, appreciative and complementary. His responses to questions were relevant and logical. No overt anger or hostility was noticed. No bizarre behavior or mannerisms were noticed. His speech was coherent and appropriate. His affect was appropriate, pleasant. Subjectively, he described his mood as "I'm feeling better already. Thank you for suggesting that I come to the hospital". Thought processes did not reveal any looseness of association or flight of ideas. No elbert delusions, auditory or visual hallucinations were noticed or reported. As mentioned, he denied active suicidal or homicidal ideations or intent at this time. He denied any previous suicide attempts. Cognitive functions - he was alert, oriented to time, place, person and situation. Memory - immediate he could do 5 digits forward, 4 digits backward. Recent, he could recall 2/3 objects after 10 minutes. Remote, he could recall presidents up to President Paxton. His attention and concentration was good. He could do serial sevens up to 58. His judgment and insight was felt to be good. Review of systems and physical examination was not done as this has been done in the emergency room and also by the medical device assembler on the case. DIAGNOSTIC IMPRESSION [place] I: Bipolar affective disorder depressed phase. [place] II: No diagnosis. [place] III: Diabetes mellitus, hypertension, status post stripping of varicose veins, status post bilateral cataract extraction, hyperlipidemia, status post coronary artery stent. [place] IV: Severity of psychosocial stressors moderate i.e. chronic psychiatric illness, chronic medical issues, limited financial resources. [place] V: Current GAF score 40. FORMULATION AND TREATMENT PLAN Based on this evaluation and my knowledge of his case, Mr. Mcduffie is experiencing depressed phase of bipolar affective disorder manifested by persistent feeling of sadness, crying episodes, suicidal thoughts, etc. His Tegretol level is therapeutic. He will be maintained on it and Latuda will be added. The risks, benefits and alternatives of this were explained to him and he understood and was supportive. As such, the Risperdal will be discontinued. Above-mentioned psychosocial stressors will be further explored and addressed in individual psychotherapy sessions. He will be encouraged to participate in grief counseling through [facility] and he was supportive of it. Chamber Worker will be asked to assist in this regard. He will participate in various other unit activities i.e. occupational therapy, recreational therapy and group therapy. Medical consult will be requested for assistance in the management of his medical problems. IDENTIFIED PROBLEMS 1. Depression/mood swings. 2. Current psychosocial stressors. ASSETS 1. He is verbal. 2. Motivated to seek help. His estimated length of stay is 5-7 days. MD GAIL Rowell/ /6:52 PM /7:37 PM
--- NOTE | 2017-04-22 20:04 | MH ---
cc: NATHALIESHAVONNEMICHAEL DATE OF ADMISSION 04/21/2017 PRESENTING CHIEF COMPLAINT AND HISTORY OF PRESENT ILLNESS This 56 year old white male, a patient of mine for many years, was admitted through the emergency room voluntarily because of increasing depression and suicidal thoughts. On the day of admission, he called the office stating that he was "very depressed and did not care whether I live or ", although denying any suicidal intent. He also stated that he has become more self isolative, was not sleeping well and would cry easily. Considering this, he was recommended evaluation in the emergency room which he complied with. He was evaluated by the psychiatric screener and the case was discussed with me. During this evaluation, he indicated that his medications were not working and that he missed his mother who [place] of 2015 and that he was increasingly feeling hopeless and useless. He denied any active suicidal thoughts or intent but made the following statement "if someone walked up to me and blew my head off with a shotgun I would be okay". As I mentioned, Mr. Mcduffie has been under my care for many years and carries a diagnosis of bipolar affective disorder. He was last admitted at this unit in September of this year in a manic state i.e. displayed psychomotor agitation, experienced delusions of grandeur and persecution, extreme preoccupation with latter-day thoughts. Historically has done very well on lithium but during his last admission, his renal functions were somewhat impaired and, as such, this was discontinued after input from the medical consultants. Depakote has not been very effective as, according to him, i was tried in the past and he became "comatose". Under the circumstances, a trial of Tegretol was recommended to which he agreed and responded quite well. During his outpatient follow up, he began to feel depressed and was started on Wellbutrin which again had to be discontinued because he became somewhat hypomanic. He was last seen in the office about 3 or 4 weeks ago at which time he seemed at his baseline on combination of Tegretol and Risperdal. Compliance at times has been an issue which was addressed. At the time of this evaluation, Mr. Mcduffie was pleasant and his usual appreciative and complementary "I want to thank you for recommending I come to the hospital. I'm beginning to feel better already. At home, I was all by myself, nobody to talk to and I was feeling useless and hopeless. Ever since I have been here, I have been talking to people, other patients and it has helped me feel better". It should be noted that he has limited support system. He was very close to his mother who lived in the area and he used to visit her almost daily. Since her , he has not had much in the form of support system and is more or less a loner. I had recommended placement in an assisted living facility to him to which he was agreeable, but did not pursue it because of limited financial resources. He mentioned over the past 2 weeks he has also been having difficulty falling asleep, however, denied any decline in his appetite. When inquired about the suicidal thoughts he responded "I'm too chicken. I'm never going to do it. I never have". Further exploration did not reveal any other significant psychosocial stressor. PAST PSYCHIATRIC HISTORY, PAST MEDICAL HISTORY, FAMILY HISTORY, PERSONAL HISTORY Please refer to my previous evaluations for details. Suffice to say that he has past medical history of coronary artery disease, myocardial infarction status post stent placement in 2012, hypertension, hyperlipidemia, diabetes mellitus type 2. MEDICATIONS Current are 1. Metoprolol 50 mg b.i.d. 2. Risperdal 2 mg q. a.m. and qhs. 3. Tegretol 300 mg per day. 4. Cogentin 2 mg p.o. daily. 5. Januvia 50 mg daily. 6. Glipizide 10 mg b.i.d. a.c. 7. Plavix 75 mg daily. 8. Tamsulosin 0.4 mg daily. CLINICAL OBSERVATION/MENTAL STATUS EXAM At the time of this evaluation, Mr. Mcduffie presented as a casually dressed reasonably well-groomed white male who looked his stated age. He was pleasant, polite, appreciative and complementary. His responses to questions were relevant and logical. No overt anger or hostility was noticed. No bizarre behavior or mannerisms were noticed. His speech was coherent and appropriate. His affect was appropriate, pleasant. Subjectively, he described his mood as "I'm feeling better already. Thank you for suggesting that I come to the hospital". Thought processes did not reveal any looseness of association or flight of ideas. No elbert delusions, auditory or visual hallucinations were noticed or reported. As mentioned, he denied active suicidal or homicidal ideations or intent at this time. He denied any previous suicide attempts. Cognitive functions - he was alert, oriented to time, place, person and situation. Memory - immediate he could do 5 digits forward, 4 digits backward. Recent, he could recall 2/3 objects after 10 minutes. Remote, he could recall presidents up to President Paxton. His attention and concentration was good. He could do serial sevens up to 58. His judgment and insight was felt to be good. Review of systems and physical examination was not done as this has been done in the emergency room and also by the medical laboratory technical officer on the case. DIAGNOSTIC IMPRESSION [place] I: Bipolar affective disorder depressed phase. [place] II: No diagnosis. [place] III: Diabetes mellitus, hypertension, status post stripping of varicose veins, status post bilateral cataract extraction, hyperlipidemia, status post coronary artery stent. [place] IV: Severity of psychosocial stressors moderate i.e. chronic psychiatric illness, chronic medical issues, limited financial resources. [place] V: Current GAF score 40. FORMULATION AND TREATMENT PLAN Based on this evaluation and my knowledge of his case, Mr. Mcduffie is experiencing depressed phase of bipolar affective disorder manifested by persistent feeling of sadness, crying episodes, suicidal thoughts, etc. His Tegretol level is therapeutic. He will be maintained on it and Latuda will be added. The risks, benefits and alternatives of this were explained to him and he understood and was supportive. As such, the Risperdal will be discontinued. Above-mentioned psychosocial stressors will be further explored and addressed in individual psychotherapy sessions. He will be encouraged to participate in grief counseling through [facility] and he was supportive of it. Cyanide Pot Hardener will be asked to assist in this regard. He will participate in various other unit activities i.e. occupational therapy, recreational therapy and group therapy. Medical consult will be requested for assistance in the management of his medical problems. IDENTIFIED PROBLEMS 1. Depression/mood swings. 2. Current psychosocial stressors. ASSETS 1. He is verbal. 2. Motivated to seek help. His estimated length of stay is 5-7 days. MD GAIL Rowell/ /6:52 PM /7:37 PM
[2017-04-22] MEDS: carBAMazepine 200 MG TAB PO SCH (20:38)
[2017-04-22] MEDS: ATORVASTATIN 40 MG TAB PO SCH (20:38)
[2017-04-23 06:00] VITALS: BP 106/65; PULSE 83; RESP 17; TEMP 97.8; O2SAT 95
--- NOTE | 2017-04-23 07:30 | HHI.PR ---
Subjective Remarks at the margin of the bed. Complaints of constipation for 2 days. Says he usually takes Metamucil bid. will start it. No n/v/d/c. Denies chest pain, sob, n/v/d/c. Objective Vitals Vital Signs Date Time Temp Pulse Resp B/P (MAP) Pulse Ox O2 Delivery O2 Flow Rate FiO2 04/23/17 06:00 97.8 83 17 106/65 (79) 95 04/22/17 18:30 97.6 82 17 119/66 (83) 97 Result Diagram: 04/21/17181704/21/171817 Objective Remarks GENERAL: This is a well-nourished, well-developed patient, in no apparent distress. SKIN: Bilateral stasis dermatitis. Cool and dry. CARDIOVASCULAR: Regular rate and rhythm without murmurs, gallops, or rubs. RESPIRATORY: Clear to auscultation. Breath sounds equal bilaterally. No wheezes , rales, or rhonchi. GASTROINTESTINAL: Abdomen soft, non-tender, nondistended. No hepato-splenomegaly , or palpable masses. No guarding. MUSCULOSKELETAL: Extremities without clubbing, cyanosis, or edema. No joint tenderness, effusion, or edema noted. No calf tenderness. Negative Homans sign bilaterally. NEUROLOGICAL: Awake and alert. Cranial nerves II through XII intact. Motor and sensory grossly within normal limits. Five out of 5 muscle strength in all muscle groups. Normal speech. A/P Assessment and Plan Depression. Suicidal ideation. Bipolar disorder Management per psychiatry Constipation Start metamucil bid. HTN. H/o [place] with stent placement in 2012. Currently he has no chest pain, asymptomatic. Continue home meds metoprolol, plavix. Monitor BP BPH continue tamsulosin Diabetes mellitus 2, failry controlled. Continue home meds. Accuchecks. Stasis dermatitis. wound care DVT ppx ambulation Thank you for this consultation will follow along Discussed Condition With patient, nurse Hellen Vallecillo MD Apr 23, 2017 07:30
[2017-04-23] MEDS: glipiZIDE 10 MG TAB PO SCH ×2 (08:00→16:08)
[2017-04-23] MEDS ORDERED: LURASIDONE 40 MG TAB PO SCH (09:00)
[2017-04-23] MEDS: CLOPIDOGREL 75 MG TAB PO SCH (09:05)
[2017-04-23] MEDS: LISINOPRIL 5 MG TAB PO SCH (09:05)
[2017-04-23] MEDS: metFORMIN HCL 500 MG TAB PO SCH (09:06)
[2017-04-23] MEDS: FUROSEMIDE 20 MG TAB PO SCH (09:06)
[2017-04-23] MEDS: METOPROLOL TARTRATE 50 MG TAB PO SCH ×2 (09:06→20:36)
[2017-04-23] MEDS ORDERED: PNEUMOCOCCAL POLYVALENT INJ 25 MCG/0.5 ML SYR IM ONE (10:00)
[2017-04-23] MEDS ORDERED: PILL SPLITTER OTHER PRN (12:30)
--- NOTE | 2017-04-23 12:31 | EKG ---
Date Performed: 04/22/2017 Time Performed: 19:37:25 PTAGE: 56 years EKG: Sinus rhythm LOW QRS VOLTAGE IN EXTREMITY LEADS BORDERLINE ECG PREVIOUS TRACING : 07/23/2011 05.01 Compared to prior tracing no significant change DOCTOR: Benjamin Spence Interpretating Date/Time 04/23/2017 12:29:20
[2017-04-23] MEDS: TAMSULOSIN HCL 0.4 MG CAP PO SCH (14:00)
[2017-04-23 17:06] VITALS: BP 131/80; PULSE 80; RESP 18; TEMP 98; O2SAT 96
[2017-04-23] MEDS: ATORVASTATIN 40 MG TAB PO SCH (20:35)
[2017-04-23] MEDS: TEMAZEPAM 15 MG CAP PO PRN (20:35)
[2017-04-23] MEDS: carBAMazepine 200 MG TAB PO SCH (20:35)
[2017-04-23] MEDS: PSYLLIUM FIBER SF/GF 6 GM POWD PKT PO SCH (20:36)
[2017-04-24 06:11] VITALS: BP 128/73; PULSE 80; RESP 17; TEMP 97.6; O2SAT 99
--- NOTE | 2017-04-24 07:40 | HHI.PR ---
Subjective Remarks Patient in nad. Says he took Metamucil last night however and did not have a bowel movement yet. Says he was able to sleep last night. No chest pain or shortness of breath no nausea or vomiting no diaphoresis. Awaiting breakfast. Objective Vitals Vital Signs Date Time Temp Pulse Resp B/P (MAP) Pulse Ox O2 Delivery O2 Flow Rate FiO2 04/24/17 06:11 97.6 80 17 128/73 (91) 99 04/23/17 17:06 98.0 80 18 131/80 (97) 96 Result Diagram: 04/21/17181704/21/171817 Objective Remarks GENERAL: This is a well-nourished, well-developed patient, in no apparent distress. SKIN: Bilateral stasis dermatitis. Cool and dry. CARDIOVASCULAR: Regular rate and rhythm without murmurs, gallops, or rubs. RESPIRATORY: Clear to auscultation. Breath sounds equal bilaterally. No wheezes , rales, or rhonchi. GASTROINTESTINAL: Abdomen soft, non-tender, nondistended. No hepato-splenomegaly , or palpable masses. No guarding. MUSCULOSKELETAL: Extremities without clubbing, cyanosis, or edema. No joint tenderness, effusion, or edema noted. No calf tenderness. Negative Homans sign bilaterally. NEUROLOGICAL: Awake and alert. Cranial nerves II through XII intact. Motor and sensory grossly within normal limits. Five out of 5 muscle strength in all muscle groups. Normal speech. A/P Assessment and Plan Depression. Suicidal ideation. Bipolar disorder Management per psychiatry Constipation Started metamucil bid. Add when necessary stool softeners and laxatives. HTN. H/o [place] with stent placement in 2012. Currently he has no chest pain, asymptomatic. Continue home meds metoprolol, plavix. Monitor BP BPH continue tamsulosin Diabetes mellitus 2, failry controlled. Continue home meds. Accuchecks. Stasis dermatitis. wound care DVT ppx ambulation Thank you for this consultation will follow along Discussed Condition With patient, nurse Hellen Vallecillo MD Apr 24, 2017 07:40
[2017-04-24] MEDS: glipiZIDE 10 MG TAB PO SCH ×2 (08:19→17:00)
[2017-04-24] MEDS: metFORMIN HCL 500 MG TAB PO SCH (08:19)
[2017-04-24] MEDS: CLOPIDOGREL 75 MG TAB PO SCH (08:20)
[2017-04-24] MEDS: LURASIDONE 40 MG TAB PO SCH (08:20)
[2017-04-24] MEDS: FUROSEMIDE 20 MG TAB PO SCH (08:20)
[2017-04-24] MEDS: METOPROLOL TARTRATE 50 MG TAB PO SCH ×2 (08:20→21:29)
[2017-04-24] MEDS: PSYLLIUM FIBER SF/GF 6 GM POWD PKT PO SCH ×2 (08:20→21:00)
[2017-04-24] MEDS: LISINOPRIL 5 MG TAB PO SCH (08:20)
[2017-04-24] MEDS: LORazepam 1 MG TAB PO PRN (12:58)
[2017-04-24] MEDS: TAMSULOSIN HCL 0.4 MG CAP PO SCH (14:26)
[2017-04-24 17:55] VITALS: BP 102/57; PULSE 83; RESP 18; TEMP 98.2; O2SAT 99
[2017-04-24] MEDS: ATORVASTATIN 40 MG TAB PO SCH (21:29)
[2017-04-24] MEDS: carBAMazepine 200 MG TAB PO SCH (21:29)
[2017-04-25 06:01] VITALS: BP 143/74; PULSE 77; RESP 16; TEMP 97.9; O2SAT 97
--- NOTE | 2017-04-25 07:52 | HHI.PR ---
Subjective Remarks Patient in nad. No fever or chills. Denies nausea or vomiting. Patient with constipation. will add lax/stool softeners No fever or chills. No chest pain or sob. Objective Vitals Vital Signs Date Time Temp Pulse Resp B/P (MAP) Pulse Ox O2 Delivery O2 Flow Rate FiO2 04/25/17 06:01 97.9 77 16 143/74 (97) 97 04/24/17 17:55 98.2 83 18 102/57 (72) 99 Result Diagram: 04/21/17181704/21/171817 Objective Remarks GENERAL: This is a well-nourished, well-developed patient, in no apparent distress. SKIN: Bilateral stasis dermatitis. Cool and dry. CARDIOVASCULAR: Regular rate and rhythm without murmurs, gallops, or rubs. RESPIRATORY: Clear to auscultation. Breath sounds equal bilaterally. No wheezes , rales, or rhonchi. GASTROINTESTINAL: Abdomen soft, non-tender, nondistended. No hepato-splenomegaly , or palpable masses. No guarding. MUSCULOSKELETAL: Extremities without clubbing, cyanosis, or edema. No joint tenderness, effusion, or edema noted. No calf tenderness. Negative Homans sign bilaterally. NEUROLOGICAL: Awake and alert. Cranial nerves II through XII intact. Motor and sensory grossly within normal limits. Five out of 5 muscle strength in all muscle groups. Normal speech. A/P Assessment and Plan Depression. Suicidal ideation. Bipolar disorder Management per psychiatry Constipation Started metamucil bid. Add when necessary stool softeners and laxatives. HTN. H/o [place] with stent placement in 2012. Currently he has no chest pain, asymptomatic. Continue home meds metoprolol, plavix. Monitor BP BPH continue tamsulosin Diabetes mellitus 2, failry controlled. Continue home meds. Accuchecks. Stasis dermatitis. wound care DVT ppx ambulation Thank you for this consultation will follow along Discussed Condition With patient, nurse Hellen Vallecillo MD Apr 25, 2017 07:52
[2017-04-25] MEDS: glipiZIDE 10 MG TAB PO SCH ×2 (08:00→16:52)
[2017-04-25] MEDS: FUROSEMIDE 20 MG TAB PO SCH (08:49)
[2017-04-25] MEDS: METOPROLOL TARTRATE 50 MG TAB PO SCH ×2 (08:49→20:10)
[2017-04-25] MEDS: CLOPIDOGREL 75 MG TAB PO SCH (08:49)
[2017-04-25] MEDS: LURASIDONE 40 MG TAB PO SCH (08:50)
[2017-04-25] MEDS: LISINOPRIL 5 MG TAB PO SCH (08:50)
[2017-04-25] MEDS: metFORMIN HCL 500 MG TAB PO SCH (08:50)
[2017-04-25] MEDS: PSYLLIUM FIBER SF/GF 6 GM POWD PKT PO SCH ×2 (09:00→20:14)
--- NOTE | 2017-04-25 13:58 | HHI.PYPN ---
Subjective Remarks Patient seen in his room with RN, chart review, I am taking over patient's care today, Dr. tatum is retiring from inpatient work. Patient is alert oriented overweight white male who is calm pleasant with me today denies suicidality homicidality voices or visions. Says is feeling better than on admission, says he slept better last night. He is acknowledges being on disability for his vision and his mental health, that is no significant support group in town. That he still mourns the of his mother about a year ago. States he has essentially no outside interests that he occasionally takes the Motrin go to some activities. He is compliant with his medications. We will transfer patient 2600 noted to put increase his socialization. Will recheck his Tegretol blood level in the a.m. to verify its range perhaps consider adjustment of that dose. Follow the community will tentatively be back with Dr. tatum Review of Systems Except as stated in HPI: all other systems reviewed are Neg Mental Status Examination Appearance: Appropriate Consciousness: Alert Orientation: x4 Motor Activity: Normal gait Speech: Unremarkable Language: Adequate Fund of Knowledge: Adequate Attention and Concentration: Adequate Memory: Unremarkable Mood: Other (euthymic to slightly restricted) Affect: Other (decreased range and intensity) Thought Process & Associations: Intact Thought Content: Appropriate Hallucination Type: None Delusion Type: None Suicidal Ideation: No (denies) Suicidal Plan: No (deny) Suicidal Intention: No (denies) Homicidal Ideation: No Homicidal Plan: No Homicidal Intention: No Insight: Adequate Judgment: Adequate Results Vitals/IOs Vital Signs Date Time Temp Pulse Resp B/P (MAP) Pulse Ox O2 Delivery O2 Flow Rate FiO2 04/25/17 06:01 97.9 77 16 143/74 (97) 97 04/21/17 20:20 Room Air Assessment & Plan Problem List: (1) Bipolar disorder, most recent episode depressed ICD Codes: F31.30 - Bipolar disorder, current episode depressed, mild or moderate severity, unspecified Assessment & Plan Estimated LOS: days patient continues depressed but calmer, he denies suicidality homicidality voices or visions at the present time we'll transfer patient to 2600 today check Tegretol level over in a.m. Justification for Cont. Inpt. At this time patient decompensate place to the lower level of care Discharge Planning Return to his own apartment possible follow-up outpatient with Dr. tatum, who has been is outpatient psychiatrist for a number of years Request HC Surrog/Guard Advoc?: No Rudolph Singh MD Apr 25, 2017 13:58
[2017-04-25] MEDS: TAMSULOSIN HCL 0.4 MG CAP PO SCH (14:12)
[2017-04-25] MEDS ORDERED: MAGNESIUM HYDROXIDE SUSP 30 ML CUP PO ONE (15:45)
[2017-04-25 17:20] VITALS: BP 149/96; PULSE 85; RESP 18; TEMP 98.3; O2SAT 97
[2017-04-25] MEDS: LORazepam 1 MG TAB PO PRN (18:40)
[2017-04-25] MEDS: ATORVASTATIN 40 MG TAB PO SCH (20:10)
[2017-04-25] MEDS: TEMAZEPAM 15 MG CAP PO PRN (20:11)
[2017-04-25] MEDS: carBAMazepine 200 MG TAB PO SCH (21:00)
[2017-04-26 05:43] VITALS: BP 131/75; PULSE 74; RESP 18; TEMP 98
[2017-04-26] MEDS: glipiZIDE 10 MG TAB PO SCH (07:56)
[2017-04-26] MEDS: metFORMIN HCL 500 MG TAB PO SCH (07:57)
[2017-04-26] MEDS: FUROSEMIDE 20 MG TAB PO SCH (07:57)
[2017-04-26] MEDS: LURASIDONE 40 MG TAB PO SCH (07:58)
[2017-04-26] MEDS: PSYLLIUM FIBER SF/GF 6 GM POWD PKT PO SCH (07:59)
[2017-04-26] MEDS: METOPROLOL TARTRATE 50 MG TAB PO SCH (07:59)
[2017-04-26] MEDS: CLOPIDOGREL 75 MG TAB PO SCH (07:59)
[2017-04-26] MEDS: LISINOPRIL 5 MG TAB PO SCH (08:00)
[2017-04-26] MEDS ORDERED: FURO20TA PO (09:16)
[2017-04-26] MEDS ORDERED: CARB100C CHEW (09:16)
[2017-04-26] MEDS ORDERED: METO-309 PO (09:16)
[2017-04-26] MEDS ORDERED: METF500 PO (09:16)
[2017-04-26] MEDS ORDERED: TAMS5CAP PO (09:16)
[2017-04-26] MEDS ORDERED: GLIP10TA6 PO (09:16)
[2017-04-26] MEDS ORDERED: PLAV75TA29 PO (09:16)
[2017-04-26] MEDS ORDERED: KONS100P3 PO (09:16)
[2017-04-26] MEDS ORDERED: ATOR40TA16 PO (09:16)
[2017-04-26] MEDS ORDERED: LISI-519 PO (09:16)
[2017-04-26] MEDS ORDERED: LURA20TA PO (09:16)
--- NOTE | 2017-04-26 09:26 | HHI.DS ---
Psychiatry Discharge Summary Inpatient Psychiatric care?: Yes Advance Directive: No Reason Not Provided: NONE Mental Health AdvanceDirective: No Health Care Proxy: No Admission Admission Date Apr 21, 2017 at 22:40 Admission Diagnosis: (1) DM type 2 (diabetes mellitus, type 2) ICD Code: E11.9 - Type 2 diabetes mellitus without complications (2) Bipolar disorder, most recent episode depressed ICD Code: F31.30 - Bipolar disorder, current episode depressed, mild or moderate severity, unspecified Brief History Please see initial psychiatric evaluation dictated by Dr. dmitriy tatum on Tobacco Use In Past 30 Days: No Tobacco Past 30 Days Alcohol Use: Never Hospital Course Patient initially admitted and seen by Dr. tatum, today patient calm cooperative pleasant denies suicidality homicidality voices or visions. He states he has been compliant with medications. Feels stable feels the medication including of Latuda is doing well with him. He now feels ready to go home. To follow-up with Dr. tatum. Patient given 1 month's Rx. Also refer patient to [facility] outpatient support groups Results Blood Pressure 131 / 75 Vital Signs Date Time Temp Pulse Resp B/P (MAP) Pulse Ox O2 Delivery O2 Flow Rate FiO2 04/26/17 05:43 98.0 74 18 131/75 (93) 04/25/17 17:20 97 Laboratory Tests Test 04/26/17 07:35 Laboratory Results Test 04/21/17 21:05 [place] Level LESS THAN 0.1 MEQ/L Summary of Procedures None done Pending results at discharge: No Medications # of Antipsychotic meds at D/C: 1 Approp Antipsych med options 1 - Minimum of three failed multiple trials of monotherapy. 2 - Documented plan to taper to monotherapy due to previous use of multiple meds OR cross-taper in progress at D/C. 3 - Documentation of augmentation of Clozapine. 4 - Justification other than those listed in allowable values 1-3, document here : Discharge Discharge Date: Apr 26, 2017 Discharge Diagnosis: (1) Bipolar disorder, most recent episode depressed Diagnosis: Principal ICD Code: F31.30 - Bipolar disorder, current episode depressed, mild or moderate severity, unspecified (2) DM type 2 (diabetes mellitus, type 2) Diagnosis: Secondary ICD Code: E11.9 - Type 2 diabetes mellitus without complications Status: Chronic Pt Condition on Discharge: Stable Discharge Disposition: Discharge Home Discharge Instructions Diet Instructions: Diabetic Diet Additional Diet Instructions: 1800-calorie Activities you can perform: Regular-No Restrictions Scheduled Appointment: follow-up Dr. dmitriy tatum, also follow-up [facility] outpatient support groups Discharge Time > 30 minutes Mental Status Examination Appearance: Appropriate Consciousness: Alert Orientation: x4 Motor Activity: Normal gait Speech: Unremarkable Language: Adequate Fund of Knowledge: Adequate Attention and Concentration: Adequate Memory: Unremarkable Mood: Other (euthymic to slightly restricted) Affect: Other (decreased range and intensity) Thought Process & Associations: Intact Thought Content: Appropriate Hallucination Type: None Delusion Type: None Suicidal Ideation: No (denies) Suicidal Plan: No (deny) Suicidal Intention: No (denies) Homicidal Ideation: No Homicidal Plan: No Homicidal Intention: No Insight: Adequate Judgment: Adequate Discharge/Advance Care Plan Health Problems: (1) Bipolar disorder, most recent episode depressed Goals to promote your health * To prevent worsening of your condition and complications * To maintain your health at the optimal level Directions to meet your goals Take your medications as prescribed Follow your dietary instruction Follow activity as directed Keep your appointments as scheduled Take your immunizations and boosters as scheduled If your symptoms worsen call your PCP, if no PCP go to Urgent Care Center or Emergency Room For 09/01 questions related to your inpatient stay or results of tests pending at discharge, please contact Dr. Rudolph Singh at Smoking is Dangerous to Your Health. Avoid second hand smoking Rudolph Singh MD Apr 26, 2017 09:26
--- NOTE | 2017-04-26 09:26 | HHI.DS ---
Psychiatry Discharge Summary Inpatient Psychiatric care?: Yes Advance Directive: No Reason Not Provided: NONE Mental Health AdvanceDirective: No Health Care Proxy: No Admission Admission Date Apr 21, 2017 at 22:40 Admission Diagnosis: (1) DM type 2 (diabetes mellitus, type 2) ICD Code: E11.9 - Type 2 diabetes mellitus without complications (2) Bipolar disorder, most recent episode depressed ICD Code: F31.30 - Bipolar disorder, current episode depressed, mild or moderate severity, unspecified Brief History Please see initial psychiatric evaluation dictated by Dr. dmitriy tatum on Tobacco Use In Past 30 Days: No Tobacco Past 30 Days Alcohol Use: Never Hospital Course Patient initially admitted and seen by Dr. tatum, today patient calm cooperative pleasant denies suicidality homicidality voices or visions. He states he has been compliant with medications. Feels stable feels the medication including of Latuda is doing well with him. He now feels ready to go home. To follow-up with Dr. tatum. Patient given 1 month's Rx. Also refer patient to [facility] outpatient support groups Results Blood Pressure 131 / 75 Vital Signs Date Time Temp Pulse Resp B/P (MAP) Pulse Ox O2 Delivery O2 Flow Rate FiO2 04/26/17 05:43 98.0 74 18 131/75 (93) 04/25/17 17:20 97 Laboratory Tests Test 04/26/17 07:35 Laboratory Results Test 04/21/17 21:05 [place] Level LESS THAN 0.1 MEQ/L Summary of Procedures None done Pending results at discharge: No Medications # of Antipsychotic meds at D/C: 1 Approp Antipsych med options 1 - Minimum of three failed multiple trials of monotherapy. 2 - Documented plan to taper to monotherapy due to previous use of multiple meds OR cross-taper in progress at D/C. 3 - Documentation of augmentation of Clozapine. 4 - Justification other than those listed in allowable values 1-3, document here : Discharge Discharge Date: Apr 26, 2017 Discharge Diagnosis: (1) Bipolar disorder, most recent episode depressed Diagnosis: Principal ICD Code: F31.30 - Bipolar disorder, current episode depressed, mild or moderate severity, unspecified (2) DM type 2 (diabetes mellitus, type 2) Diagnosis: Secondary ICD Code: E11.9 - Type 2 diabetes mellitus without complications Status: Chronic Pt Condition on Discharge: Stable Discharge Disposition: Discharge Home Discharge Instructions Diet Instructions: Diabetic Diet Additional Diet Instructions: 1800-calorie Activities you can perform: Regular-No Restrictions Scheduled Appointment: follow-up Dr. dmitriy tatum, also follow-up [facility] outpatient support groups Discharge Time > 30 minutes Mental Status Examination Appearance: Appropriate Consciousness: Alert Orientation: x4 Motor Activity: Normal gait Speech: Unremarkable Language: Adequate Fund of Knowledge: Adequate Attention and Concentration: Adequate Memory: Unremarkable Mood: Other (euthymic to slightly restricted) Affect: Other (decreased range and intensity) Thought Process & Associations: Intact Thought Content: Appropriate Hallucination Type: None Delusion Type: None Suicidal Ideation: No (denies) Suicidal Plan: No (deny) Suicidal Intention: No (denies) Homicidal Ideation: No Homicidal Plan: No Homicidal Intention: No Insight: Adequate Judgment: Adequate Discharge/Advance Care Plan Health Problems: (1) Bipolar disorder, most recent episode depressed Goals to promote your health * To prevent worsening of your condition and complications * To maintain your health at the optimal level Directions to meet your goals Take your medications as prescribed Follow your dietary instruction Follow activity as directed Keep your appointments as scheduled Take your immunizations and boosters as scheduled If your symptoms worsen call your PCP, if no PCP go to Urgent Care Center or Emergency Room For 09/01 questions related to your inpatient stay or results of tests pending at discharge, please contact Dr. Rudolph Singh at Smoking is Dangerous to Your Health. Avoid second hand smoking Rudolph Singh MD Apr 26, 2017 09:26
[2017-04-26] MEDS: TAMSULOSIN HCL 0.4 MG CAP PO SCH (12:58)
== END 2017-04-26 14:00 | disposition home or self-care (01) | DRG 885 ==
LOC: NEPJ 18:01 → NEDA 22:40 → H260 04-22 → H270 04-23 10:45
PROVIDERS: ADMIT Psychiatry & Neurology Psychiatry; ATTEND Psychiatry & Neurology Psychiatry
DX: F31.32 Bipolar disorder, current episode depressed, moderate (principal); E11.9 Type 2 diabetes mellitus without complications; R45.851 Suicidal ideations; I10 Essential (primary) hypertension; E78.5 Hyperlipidemia, unspecified; I25.10 Atherosclerotic heart disease of native coronary artery without angina pectoris; Z95.5 Presence of coronary angioplasty implant and graft; Z98.41 Cataract extraction status, right eye; Z98.42 Cataract extraction status, left eye; I25.2 Old myocardial infarction; J44.9 Chronic obstructive pulmonary disease, unspecified; I87.2 Venous insufficiency (chronic) (peripheral); Z83.3 Family history of diabetes mellitus; Z82.49 Family history of ischemic heart disease and other diseases of the circulatory system; Z79.84 Long term (current) use of oral hypoglycemic drugs; N40.0 Benign prostatic hyperplasia without lower urinary tract symptoms; K59.00 Constipation, unspecified; Z23 Encounter for immunization
CPT/HCPCS: 80053; 80156; 80178; 80307; 82948; 84439; 84443; 85025; 90732; 93005